=== PATIENT | female | born 1965 | race African-American/Black ===

== ENCOUNTER 2017-05-27 18:42 | Observation (INO) | payer OTHER ==
[2017-05-27 18:49] VITALS: BMI 29.2
--- NOTE | 2017-05-27 19:32 | PDOC ---
History of Present Illness - General Chief Complaint: Weakness Stated Complaint: PAIN Time Seen by Provider: 05/27/17 18:58 - History of Present Illness Initial Comments: 05/27/17 20:10 The patient is a 51 year old female with a history of DM and HTN who presents for evaluation of left shoulder and neck pain. The patient reports a several month history of left sided jaw pain that has had a negative work up done by dental and ENT. She states that over the past 1 week she has been feeling more fatigued and today began experiencing left sided achy shoulder, arm, and neck pain prompting her to present to the ED for evaluation. She endorses some subjective fevers and chills, but denies any SOB, chest pain, abdominal pain, or changes with urination or bowel movements. She states that she has seen a food and nutrition supervisor in the past, but does not follow regularly due to an abnormal EKG. She has a copy with her that demonstrates st elevations in v1-v3 with depressions in lead II. She states that she has had a negative cath in the past and a negative work up by her food and nutrition supervisor for acs. Past History - Past Medical History Allergies/Adverse Reactions: Allergies Allergy/AdvReac Type Severity Reaction Status Date / Time No Known Allergies Allergy Unverified 05/27/17 18:49 Home Medications: Ambulatory Orders Metformin HCl 500 mg PO BID #14 tablet 12/22/14 Ramipril 10 mg PO DAILY capsule 12/22/14 Sitagliptin Phosphate [Januvia] 25 mg PO DAILY 05/27/17 Diabetes: Yes HTN: Yes - Suicide/Smoking/Psychosocial Hx Smoking History: Never smoked Have you smoked in the past 12 months: No Hx Alcohol Use: No Drug/Substance Use Hx: No Substance Use Type: None Review of Systems - Review of Systems Comments:: 05/27/17 20:18 Constitutional: Fatigue, fevers, chills. No malaise HEENT: No Rhinorrhea, nasal congestion, Cardiovascular: No chest pain, syncope, palpitations, lightheadedness Respiratory: No Cough, SOB, Hemoptysis, Gastrointestinal: No Abdominal pain, Nausea, Vomiting, Constipation, Diarrhea, Melena Genitourinary: No Dysuria, Frequency, Urgency, Hesitancy, Hematuria, Flank pain Musculoskeletal: Left shoulder and neck achy pain. No Myalgia, arthralgia Skin: No rashes, bruising, pallor Neurologic: No Headache, Dizziness, Numbness, Weakness, or Tingling *Physical Exam - Vital Signs Last Vital Signs Temp Pulse Resp BP Pulse Ox 98.2 F 68 20 153/86 100 05/27/17 18:46 05/27/17 18:46 05/27/17 18:46 05/27/17 18:46 05/27/17 18:46 - Physical Exam Comments: 05/27/17 20:22 General Appearance: Nourished. No Apparent Distress HEENT: EOMI, SHILA. No Pharyngeal Erythema, Tonsillar Exudate, Tonsillar Erythema Neck: Normal range of motion. No Cervical Lymphadenopathy Respiratory/Chest: Lungs Clear, Normal Breath Sounds. No Crackles, Rales, Rhonchi, Wheezing Cardiovascular: Regular Rhythm, Regular Rate. No Murmur, Gallops, Rubs Gastrointestinal/Abdominal: Normal Bowel Sounds, Soft. No Guarding, Rebound, Tenderness Musculoskeletal: No CVA Tenderness Extremity: Normal Capillary Refill Integumentary: Normal Color, Dry, Warm Neurologic: Fully Oriented, Alert, Normal Mood/Affect, Normal Response, Heart Score/ECG Review #1 ECG reviewed & interpreted by me at: 20:41 (Known old st elevations in leads v1- v3) General ECG Interpretation: Sinus Rhythm, Normal Rate, Normal Intervals, No acute ischemic changes Compared to previous ECG there are: No significant change (01/12/17) ED Treatment Course - LABORATORY CBC & Chemistry Diagram: 05/27/17 20:00 05/27/17 20:00 Medical Decision Making - Medical Decision Making 05/27/17 20:24 The patient is a 51 year old female with a history of DM and HTN who presents for evaluation of left shoulder and neck pain. Differential includes but is not limited to: Musculoskeletal, ACS, Pneumonia, metabolic derangement. Given the patient's symptoms of achy left shoulder pain with a normal physical exam, it is likely her symptoms are due to musculoskeletal spasm or strain. However, given her significant comorbidities of DM and HTN we will obtain a cbc, cmp, troponin and EKG to evaluate for ACS. The patient has known st elevations on a prior EKG she brought with her that have had a negative work up in the past. We will compare our EKG with the one she has provided. We will also obtain a chest plain film to evaluate for pneumonia, although we have a low suspicion due to her normal physical exam. We will continue to monitor and reassess. 05/27/17 21:51 cbc, cmp and initial troponin are negative. EKG is unchanged from previous. We will observe the patient and obtain a second troponin. 05/28/17 02:52 Second troponin is positive at 0.07. We believe that the patient requires admission for further management of her symptoms. 05/28/17 03:00 Discussed the patient with the hospitalist team who accepted the patient for tele obs admission. *DC/Admit/Observation/Transfer Diagnosis at time of Disposition: Elevated troponin level - Discharge Dispostion Condition at time of disposition: Stable Admit: Yes
[2017-05-27 20:12] LABS: BASOPHIL 0.4 % (0-2.0); EOSINOPHIL 1.1 % (0-4.5); MCH 31.1 pg (25.7-33.7); MCHC 33.8 g/dl (32.0-36.0); MEAN CELL VOLUME 91.9 fl (80-96); MEAN PLT VOLUME 8.2 fl (7.5-11.1); PLATELET COUNT 189 K/MM3 (134-434); RDW 13.6 % (11.6-15.6)
[2017-05-27 20:37] LABS: ALBUMIN 3.3 g/dl (3.4-5.0); ANION GAP 5 (8-16); BILIRUBIN,TOTAL 0.4 mg/dL (0.2-1.0); CALCIUM 8.1 mg/dL (8.5-10.1); CO2 28 mmol/L (21-32); CREATININE 0.5 mg/dL (0.55-1.02); GLUCOSE,RANDOM 137 mg/dL (74-106); TOT PROT 6.5 g/dl (6.4-8.2)
[2017-05-27 20:43] LABS: ALK PHOS 55 U/L (45-117); CPK 158 IU/L (26-192); SGPT/ALT 25 U/L (12-78); TROPONIN I 0.05 ng/ml (0.00-0.05)
[2017-05-27 20:50] LABS: SGOT/AST 17 U/L (15-37)
[2017-05-27 20:51] LABS: URINE APPEARANCE CLEAR; URINE BILIRUBIN NEGATIVE (NEGATIVE); URINE BLOOD 2+ (NEGATIVE); URINE COLOR LTYELLOW; URINE GLUCOSE (UA) 3+ (NEGATIVE); URINE KETONE NEGATIVE (NEGATIVE); URINE NITRITE NEGATIVE (NEGATIVE); URINE PROTEIN NEGATIVE (NEGATIVE); URINE UROBILINOGEN NEGATIVE mg/dL (0.2-1.0)
[2017-05-27 20:58] LABS: URINE MUCUS RARE; URINE RBC 30 /hpf (0-3); URINE WBC 1 /hpf (3-5)
[2017-05-27] MEDS ORDERED: KETOROLAC TROMETHAMINE 30 MG/1 ML VIAL IVPUSH ONE (21:03)
[2017-05-27] MEDS ORDERED: METHOCARBAMOL 500 MG TABLET PO ONE (21:03)
[2017-05-27] MEDS ORDERED: METHOCARBAMOL 500 MG TABLET ONE (21:08)
[2017-05-27] MEDS ORDERED: KETOROLAC TROMETHAMINE 30 MG/1 ML VIAL ONE (21:09)
[2017-05-27 22:11] LABS: URINE LEUK ESTERASE Negative (NEGATIVE)
[2017-05-28 00:33] LABS: TROPONIN I 0.07 ng/ml (0.00-0.05)
[2017-05-28] MEDS ORDERED: ASPIRIN 81 MG CHEWABLE TABLETS PO ONE (01:20)
[2017-05-28] MEDS ORDERED: METOPROLOL TARTRATE 50 MG TABLET (FP) PO ONE (01:21)
[2017-05-28] MEDS ORDERED: METOPROLOL TARTRATE 50 MG TABLET (FP) ONE (01:50)
[2017-05-28] MEDS ORDERED: ASPIRIN 81 MG CHEWABLE TABLETS ONE (01:50)
[2017-05-28] MEDS ORDERED: ONDANSETRON 4 MG/2 ML VIAL IVPB PRN (02:44)
[2017-05-28] MEDS ORDERED: NITROGLYCERIN SUBLINGUAL 1/150 0.4 MG TAB SL PRN (02:44)
[2017-05-28] MEDS ORDERED: ACETAMINOPHEN 325 MG TABLET (FP) PO PRN (02:44)
[2017-05-28] MEDS ORDERED: morphine CARPU-JECT 2 MG/1 ML DISP.SYRIN IVPB PRN (02:48)
--- NOTE | 2017-05-28 03:49 | PDOC ---
Attending Attestation - Resident Resident Name: Manoj Aguilera - HPI HPI: 05/28/17 04:43 Pt comes with shoulder pain on the left associated with left jaw pain. Shoulder and arm pain began today. - Physicial Exam PE: 05/28/17 04:44 Exam is normal. Agree with resident exam - Medical Decision Making 05/28/17 04:44 Pt has a positive 2nd troponin and she will be admitted to telemetry. Asa and metoprolol given. CPK is only 138; cardiology consult needed and serial cardiac enzymes.
--- NOTE | 2017-05-28 03:54 | HP ---
Admitting History and Physical - Admission Chief Complaint: jaw pain History of Present Illness: 51 yo f w hx of htn, dm who presents to the er for evaluation of left arm pain radiating into neck and jaw. pt reports she has had discomfort to her neck and jaw in the past and was seen by dentist and ent who did not find anything wrong. she reports the pain yest felt different. she states the pain was in her left arm and radiated into her neck/jaw and side of head. it was 6-7/10 sharp. no aggravating or alleviating factors. she felt associated weakness. she denies associated nausae/vomiting, diaphoresis, heart palps, syncope(true or near), sob. She reportedly had an echo 2mon ago which was normal, also had cath done 2 years ago which was neg. she reports constipation. She denies dysuria, fevers, cough, chills. She reports hot flashes. She denies any recent travel, leg swelling or calf pain. pmh/psh- htn, dm, uterine polyp removal social- works as line construction supervisor. denies alcohol tobacco rec drugs famhx- dad- ppm pcp- [facility]- [facility] rest of ros neg except for hpi pex gen- in nad, alert hent- at/nc, [place], neck supple, trachea midline, no lymphadneopathy, no pharyngeal erythema resp- no cough, lungs ctab, no ronchi, no rales cards- no jvd, no leg edema, rrr, s1s2 heard, no rubs musk- normal arom bue,no ttp over shoulder or neck gi- soft non-tender, nt/ng, no pulsatile mass, bs+ psych- cooperative, no agitation neuro- cn2-12 grossly intact, speech clear, no facial droop prob list neck/jaw and left arm pain positive troponin weakness ?stemi htn dm imaging reviewed cxr ekg a/p- 51 yo f w hx of htn, dm who presents to the er for evaluation of left arm pain radiating into neck and jaw and found to have positive troponin 1. neck/jaw and left arm pain with positive troponin; ?stemi ekg shows st elevation in v1,v2 but no significant difference as compared to ekg 01/12/2017 which also showed elevation in v1 &v2 pt reports pain has resolved trend troponins echo cards consult cardiac tele prn david cont acei, add bb lovenox 80mg sq bid serial ekg 2. htn cont acei, add bb 3. dm ssi f/s dispo- requires > 2mn stay for +troponin w/u History Source: Patient Limitations to Obtaining History: No Limitations - Smoking History Smoking history: Never smoked Have you smoked in the past 12 months: No - Alcohol/Substance Use Hx Alcohol Use: No Home Medications - Allergies Allergies/Adverse Reactions: Allergies Allergy/AdvReac Type Severity Reaction Status Date / Time No Known Allergies Allergy Unverified 05/27/17 18:49 - Home Medications Home Medications: Ambulatory Orders Metformin HCl 500 mg PO BID #14 tablet 12/22/14 Ramipril 10 mg PO DAILY capsule 12/22/14 Sitagliptin Phosphate [Januvia] 25 mg PO DAILY 05/27/17 Physical Examination Vital Signs: Vital Signs Temperature 98.2 F 05/27/17 18:46 Pulse Rate 57 L 05/28/17 03:37 Respiratory Rate 14 05/28/17 03:37 Blood Pressure 128/76 05/28/17 03:37 O2 Sat by Pulse Oximetry (%) 100 05/27/17 18:46 Labs: CBC, BMP 05/27/17 20:00 05/27/17 20:00
[2017-05-28 06:53] LABS: BASOPHIL 0.6 % (0-2.0); EOSINOPHIL 1.3 % (0-4.5); MCH 30.6 pg (25.7-33.7); MCHC 33.4 g/dl (32.0-36.0); MEAN CELL VOLUME 91.6 fl (80-96); MEAN PLT VOLUME 8.6 fl (7.5-11.1); NEUTROPHILS 46.7 % (42.8-82.8); PLATELET COUNT 169 K/MM3 (134-434); RDW 13.4 % (11.6-15.6); WHITE BLOOD COUNT 3.5 K/mm3 (4.0-10.0)
[2017-05-28] MEDS: INSULIN SLIDING SCALE (NOVOLOG) 1 VIAL SQ SCH ×3 (07:06→17:41)
[2017-05-28 08:41] LABS: ANION GAP 7 (8-16); CO2 26 mmol/L (21-32); CREATININE 0.5 mg/dL (0.55-1.02); GLUCOSE,RANDOM 91 mg/dL (74-106); MAGNESIUM 2.1 mg/dL (1.8-2.4); TROPONIN I 0.07 ng/ml (0.00-0.05)
[2017-05-28] MEDS ORDERED: ENOXAPARIN NA (PORCINE) 40 MG/0.4 ML DISP.SYRIN SQ SCH (10:00)
--- NOTE | 2017-05-28 10:54 | EKG ---
Test Reason : Blood Pressure : / mmHG Vent. Rate : 068 BPM Atrial Rate : 068 BPM P-R Int : 148 ms QRS Dur : 096 ms QT Int : 426 ms P-R-T Axes : 065 026 137 degrees QTc Int : 452 ms NORMAL SINUS RHYTHM LEFT VENTRICULAR HYPERTROPHY WITH REPOLARIZATION ABNORMALITY ST ELEVATION, CONSIDER EARLY REPOLARIZATION ABNORMAL ECG WHEN COMPARED WITH ECG OF 29-APR-2009 06:42, QRS DURATION HAS INCREASED ST NOW DEPRESSED IN LATERAL LEADS T WAVE INVERSION NO LONGER EVIDENT IN INFERIOR LEADS CLINICAL CORRELATION IS RECOMMENDED Confirmed by VICKI HWANG, DIANE ([id number]) on 05/28/2017 10:53:45 AM Referred By: Confirmed By:DIANE COHEN MD
[2017-05-28] MEDS: RAMIPRIL 5 MG CAPSULE (FP) PO SCH (11:22)
[2017-05-28] MEDS: ENOXAPARIN NA (PORCINE) 80 MG/0.8 ML DISP.SYRIN SQ SCH ×2 (11:23→22:03)
[2017-05-28] MEDS: METOPROLOL TARTRATE 50 MG TABLET (FP) PO SCH ×2 (11:23→22:03)
[2017-05-28] MEDS: ASPIRIN 81 MG CHEWABLE TABLETS PO SCH (11:23)
--- NOTE | 2017-05-28 12:30 | CON.CARD ---
Consult Consult Specialty:: cardeiology Reason for Consultation:: left shoulder and neck pains; jaw pains; multiple CAD risks - History of Present Illness History of Present Illness: The patient is a 51 year old black female (brooklynJayne Pedro Luis) with a history of DM and HTN who presents for evaluation of left shoulder and neck pain. The patient reports a several month history of left sided jaw pain that has had a negative work up done by dental and ENT. She states that over the past 1 week she has been feeling more fatigued and today began experiencing left sided achy shoulder , arm, and neck pain prompting her to present to the ED for evaluation. She endorses some subjective fevers and chills, but denies any SOB, chest pain, abdominal pain, or changes with urination or bowel movements. She states that she has seen a hop sorter in the past for an abnormal EKG, but does not follow regularly. She has a copy with her that demonstrates st elevations in v1 -v3 with depressions in lead II. She states that she has had a negative cath in the past ([facility], ?2014, for abnormal EKG) and a negative work up by her hop sorter (Dr. Hanna) for ACS. She denies chest pain or dyspnea. - History Source History Provided By: Patient, Medical Record Limitations to Obtaining History: No Limitations - Past Medical History Cardio/Vascular: Yes: HTN, Other (DM) Reproductive: Yes: Postmenopausal - Alcohol/Substance Use Hx Alcohol Use: No - Smoking History Smoking history: Never smoked Have you smoked in the past 12 months: No - Social History Place of : [facility] ([facility]) Home Medications - Allergies Allergies/Adverse Reactions: Allergies Allergy/AdvReac Type Severity Reaction Status Date / Time No Known Allergies Allergy Unverified 05/27/17 18:49 - Home Medications Home Medications: Ambulatory Orders Metformin HCl 500 mg PO BID #14 tablet 12/22/14 Ramipril 10 mg PO DAILY capsule 12/22/14 Sitagliptin Phosphate [Januvia] 25 mg PO DAILY 05/27/17 Family Disease History - Family Disease History Family History: Denies Review of Systems - Review of Systems Constitutional: reports: No Symptoms Eyes: reports: No Symptoms HENT: reports: No Symptoms Neck: reports: Pain on Movement, Stiffness Cardiovascular: reports: No Symptoms Respiratory: reports: No Symptoms Gastrointestinal: reports: No Symptoms Genitourinary: reports: No Symptoms Breasts: reports: No Symptoms Reported Musculoskeletal: reports: Muscle Pain Integumentary: reports: No Symptoms Neurological: reports: Weakness (left shoulder and left side of neck) Endocrine: reports: No Symptoms Hematology/Lymphatic: reports: No Symptoms Psychiatric: reports: Anxiety - Risk Factors Known Risk Factors: Yes: Age, Diabetes Mellitus, Hypertension, Race, Other ( postmenopausal) Vital Signs: Vital Signs Temperature 98.1 F 05/28/17 09:00 Pulse Rate 70 05/28/17 09:00 Respiratory Rate 20 05/28/17 09:00 Blood Pressure 140/87 05/28/17 09:00 O2 Sat by Pulse Oximetry (%) 100 05/28/17 09:00 Constitutional: Yes: Calm Eyes: Yes: WNL HENT: Yes: WNL Neck: Yes: Decreased ROM Respiratory: Yes: WNL Gastrointestinal: Yes: WNL Renal/: No: Anuria Cardiovascular: Yes: WNL JVD: No Carotid Bruit: No PMI: Non-Displaced Heart Sounds: Yes: S1, S2, S4 Musculoskeletal: Yes: Muscle Pain Extremities: Yes: WNL Edema: No Peripheral Pulses WNL: Yes Integumentary: Yes: WNL Neurological: Yes: Alert, Oriented, Weakness Psychiatric: Yes: Other (anxiety) - Other Data Labs, Other Data: CBC, BMP 05/28/17 05:35 05/28/17 05:35 Troponin, BNP 05/28/17 05:35 Troponin I 0.07 H Troponin, BNP 05/28/17 05:35 Troponin I 0.07 H Abnormal Lab Results 05/28/17 05/28/17 05:35 05:35 Chloride 109 H Anion Gap 7 L BUN 20 H Creatinine 0.5 L Calcium 8.0 L Troponin I 0.07 H Total LDL Cholesterol 107 H Imaging - Results EKG: Image Reviewed Problem List - Problems (1) Elevated troponin Assessment/Plan: 0.05-->0.07; CK WNL. Chronic muscle aches of left shoulder, neck. EKG sinus bradycardia; LVH with repolarization changes; T wave inversions I, V2- V6; mild (<1mv)ST elevation V1 and V2 (compared to 01/2017, ST elevation in leads V1-V2, and ST depression in V3 are now less evident). F/u TNI serially. ECHO for LVEF, wall motion, valve status. Old records for prior coronary artery evaluation (including angiogram done ? 2014 for EKG abnormalities). Code(s): R74.8 - ABNORMAL LEVELS OF OTHER SERUM ENZYMES (2) Diabetes Assessment/Plan: on Novolog. On ARB. Code(s): E11.9 - TYPE 2 DIABETES MELLITUS WITHOUT COMPLICATIONS (3) HTN (hypertension) Assessment/Plan: on Altace and metoprolol. Code(s): I10 - ESSENTIAL (PRIMARY) HYPERTENSION (4) Hyperlipidemia Assessment/Plan: consider statin (DM; LDL cholesterol 107 mg/dL) Code(s): E78.5 - HYPERLIPIDEMIA, UNSPECIFIED (5) Anxiety Code(s): F41.9 - ANXIETY DISORDER, UNSPECIFIED
[2017-05-28 12:52] LABS: CHOLESTEROL 163 mg/dL (50-200)
[2017-05-29] MEDS: INSULIN SLIDING SCALE (NOVOLOG) 1 VIAL SQ SCH ×3 (06:00→17:01)
[2017-05-29] MEDS: METOPROLOL TARTRATE 50 MG TABLET (FP) PO SCH (09:26)
[2017-05-29] MEDS: RAMIPRIL 5 MG CAPSULE (FP) PO SCH (09:27)
[2017-05-29] MEDS: ASPIRIN 81 MG CHEWABLE TABLETS PO SCH (09:27)
[2017-05-29] MEDS: ENOXAPARIN NA (PORCINE) 80 MG/0.8 ML DISP.SYRIN SQ SCH (09:31)
--- NOTE | 2017-05-29 10:09 | EKG ---
Test Reason : Blood Pressure : / mmHG Vent. Rate : 051 BPM Atrial Rate : 051 BPM P-R Int : 160 ms QRS Dur : 090 ms QT Int : 484 ms P-R-T Axes : 044 021 166 degrees QTc Int : 446 ms SINUS BRADYCARDIA LEFT VENTRICULAR HYPERTROPHY WITH REPOLARIZATION ABNORMALITY MARKED T WAVE ABNORMALITY, CONSIDER ANTERIOR ISCHEMIA VS. POST INJURY ABNORMAL ECG WHEN COMPARED WITH ECG OF 28-MAY-2017 09:43, T WAVE VARIATION Confirmed by MALENA HWANG, BRINDA ([id number]) on 05/29/2017 10:08:58 AM Referred By: LEONCIO Confirmed By:BRINDA GUY MD
--- NOTE | 2017-05-29 10:17 | EKG ---
Test Reason : Blood Pressure : / mmHG Vent. Rate : 056 BPM Atrial Rate : 056 BPM P-R Int : 152 ms QRS Dur : 104 ms QT Int : 470 ms P-R-T Axes : 033 016 151 degrees QTc Int : 453 ms SINUS BRADYCARDIA LEFT VENTRICULAR HYPERTROPHY WITH REPOLARIZATION ABNORMALITY ST ABNORMALITY, CONSIDER MYOCARDIAL INJURY IN ANTERIOR AND LATERAL LEADS ABNORMAL ECG WHEN COMPARED WITH ECG OF 27-MAY-2017 20:24, CONSIDER EVOLVING MYOCARDIAL DAMAGE Confirmed by MALENA HWANG, BRINDA ([id number]) on 05/29/2017 10:16:50 AM Referred By: Dante MARSHALL Confirmed By:BRINDA GUY MD
--- NOTE | 2017-05-29 13:13 | PN ---
Progress Note, Physician History of Present Illness: The patient is a 51 year old black female (carmela Cloud) with a history of DM and HTN who presents for evaluation of left shoulder and neck pain. The patient reports a several month history of left sided jaw pain that has had a negative work up done by dental and ENT. She states that over the past 1 week she has been feeling more fatigued and today began experiencing left sided achy shoulder , arm, and neck pain prompting her to present to the ED for evaluation. She endorses some subjective fevers and chills, but denies any SOB, chest pain, abdominal pain, or changes with urination or bowel movements. She states that she has seen a programmable logic controller assembler in the past for an abnormal EKG, but does not follow regularly. She has a copy with her that demonstrates st elevations in v1 -v3 with depressions in lead II. She states that she has had a negative cath in the past ([facility], ?2014, for abnormal EKG) and a negative work up by her programmable logic controller assembler (Dr. Hanna) for ACS. She denies chest pain or dyspnea. - Current Medication List Current Medications: Active Medications Acetaminophen (Tylenol -) 650 mg PO Q4H PRN PRN Reason: FEVER OR PAIN Aspirin (Asa -) 81 mg PO DAILY [facility] Last Admin: 05/29/17 09:27 Dose: 81 mg Enoxaparin Sodium (Lovenox -) 80 mg SQ BID [facility] Last Admin: 05/29/17 09:31 Dose: Not Given Insulin Aspart (Novolog Vial Sliding Scale -) 1 vial SQ TIDAC [facility] PRN Reason: Protocol Last Admin: 05/29/17 11:02 Dose: Not Given Metoprolol Tartrate (Lopressor -) 50 mg PO BID [facility] Last Admin: 05/29/17 09:26 Dose: 50 mg Morphine Sulfate (Morphine Injection -) 2 mg IVPB Q4H PRN PRN Reason: PAIN Nitroglycerin (Nitrostat -) 0.4 mg SL Q5M PRN PRN Reason: FOR CHEST PAIN Ondansetron HCl (Zofran Injection) 8 mg IVPB Q6H PRN PRN Reason: NAUSEA Ramipril (Altace -) 10 mg PO DAILY [facility] Last Admin: 05/29/17 09:27 Dose: 10 mg - Objective Vital Signs: Vital Signs Temperature 97.7 F 05/29/17 10:00 Pulse Rate 52 L 05/29/17 10:00 Respiratory Rate 18 05/29/17 10:00 Blood Pressure 134/72 05/29/17 10:00 O2 Sat by Pulse Oximetry (%) 99 05/29/17 09:00 Eyes: Yes: WNL, Conjunctiva Clear, EOM Intact HENT: Yes: WNL, Atraumatic, Normocephalic Neck: Yes: WNL, Supple, Trachea Midline Cardiovascular: Yes: WNL, Regular Rate and Rhythm Respiratory: Yes: WNL, Regular, CTA Bilaterally Gastrointestinal: Yes: WNL, Normal Bowel Sounds Genitourinary: Yes: WNL Musculoskeletal: Yes: WNL Extremities: Yes: WNL Edema: No Integumentary: Yes: WNL Neurological: Yes: WNL, Alert, Oriented ...Motor Strength: WNL Psychiatric: Yes: WNL Labs: CBC, BMP 05/28/17 05:35 05/28/17 05:35
--- NOTE | 2017-05-29 13:16 | PN ---
Progress Note, Physician History of Present Illness: The patient is a 51 year old black female (carmela Cloud) with a history of DM and HTN who presents for evaluation of left shoulder and neck pain. The patient reports a several month history of left sided jaw pain that has had a negative work up done by dental and ENT. She states that over the past 1 week she has been feeling more fatigued and today began experiencing left sided achy shoulder , arm, and neck pain prompting her to present to the ED for evaluation. She endorses some subjective fevers and chills, but denies any SOB, chest pain, abdominal pain, or changes with urination or bowel movements. She states that she has seen a malt house kiln operator in the past for an abnormal EKG, but does not follow regularly. She has a copy with her that demonstrates st elevations in v1 -v3 with depressions in lead II. She states that she has had a negative cath in the past ([facility], ?2014, for abnormal EKG) and a negative work up by her malt house kiln operator (Dr. Hanna) for ACS. She denies chest pain or dyspnea. - Current Medication List Current Medications: Active Medications Acetaminophen (Tylenol -) 650 mg PO Q4H PRN PRN Reason: FEVER OR PAIN Aspirin (Asa -) 81 mg PO DAILY [facility] Last Admin: 05/29/17 09:27 Dose: 81 mg Enoxaparin Sodium (Lovenox -) 80 mg SQ BID [facility] Last Admin: 05/29/17 09:31 Dose: Not Given Insulin Aspart (Novolog Vial Sliding Scale -) 1 vial SQ TIDAC [facility] PRN Reason: Protocol Last Admin: 05/29/17 11:02 Dose: Not Given Metoprolol Tartrate (Lopressor -) 50 mg PO BID [facility] Last Admin: 05/29/17 09:26 Dose: 50 mg Morphine Sulfate (Morphine Injection -) 2 mg IVPB Q4H PRN PRN Reason: PAIN Nitroglycerin (Nitrostat -) 0.4 mg SL Q5M PRN PRN Reason: FOR CHEST PAIN Ondansetron HCl (Zofran Injection) 8 mg IVPB Q6H PRN PRN Reason: NAUSEA Ramipril (Altace -) 10 mg PO DAILY [facility] Last Admin: 05/29/17 09:27 Dose: 10 mg - Objective Vital Signs: Vital Signs Temperature 97.7 F 05/29/17 10:00 Pulse Rate 52 L 05/29/17 10:00 Respiratory Rate 18 05/29/17 10:00 Blood Pressure 134/72 05/29/17 10:00 O2 Sat by Pulse Oximetry (%) 99 05/29/17 09:00 Eyes: Yes: WNL, Conjunctiva Clear, EOM Intact HENT: Yes: WNL, Atraumatic, Normocephalic Neck: Yes: WNL, Supple, Trachea Midline Cardiovascular: Yes: WNL, Regular Rate and Rhythm Respiratory: Yes: WNL, Regular, CTA Bilaterally Gastrointestinal: Yes: WNL, Normal Bowel Sounds Genitourinary: Yes: WNL Musculoskeletal: Yes: WNL Extremities: Yes: WNL Edema: No Integumentary: Yes: WNL Neurological: Yes: WNL, Alert, Oriented ...Motor Strength: WNL Psychiatric: Yes: WNL Labs: CBC, BMP 05/28/17 05:35 05/28/17 05:35 Assessment/Plan - Problems (1) Elevated troponin Assessment/Plan: 0.05-->0.07; CK WNL. Chronic muscle aches of left shoulder, neck. EKG sinus bradycardia; LVH with repolarization changes; T wave inversions I, V2- V6; mild (<1mv)ST elevation V1 and V2 (compared to 01/2017, ST elevation in leads V1-V2, and ST depression in V3 are now less evident). F/u TNI serially. ECHO nl ef severe LVH Old records for prior coronary artery evaluation (including angiogram done ? 2014 for EKG abnormalities). echo st for risk stratification. Code(s): R74.8 - ABNORMAL LEVELS OF OTHER SERUM ENZYMES (2) Diabetes Assessment/Plan: on Novolog. On ARB. Code(s): E11.9 - TYPE 2 DIABETES MELLITUS WITHOUT COMPLICATIONS (3) HTN (hypertension) Assessment/Plan: on Altace and metoprolol. Code(s): I10 - ESSENTIAL (PRIMARY) HYPERTENSION (4) Hyperlipidemia Assessment/Plan: consider statin (DM; LDL cholesterol 107 mg/dL) Code(s): E78.5 - HYPERLIPIDEMIA, UNSPECIFIED (5) Anxiety Code(s): F41.9 - ANXIETY DISORDER, UNSPECIFIED
[2017-05-29 15:19] VITALS: BP 122/93; PULSE 80; TEMP 98.1
--- NOTE | 2017-05-29 17:20 | DS ---
Physical Exam: SUBJECTIVE: Patient seen and examined oob to chair. Feels well. Shoulder pain has resolved. OBJECTIVE: Vital Signs Period Temp Pulse Resp BP Sys/Arcos Pulse Ox Last 24 Hr 97.7 F-98.4 F 52-80 18-20 122-137/72-93 99-99 PHYSICAL EXAM GENERAL: The patient is awake, alert, and fully oriented, in no acute distress. HEAD: Normal with no signs of trauma. LUNGS: Breath sounds equal, clear to auscultation bilaterally, no wheezes, no crackles, no accessory muscle use. HEART: Regular rate and rhythm, S1, S2 without murmur, rub or gallop. ABDOMEN: Soft, nontender, nondistended, normoactive bowel sounds, no guarding, no rebound, no hepatosplenomegaly, no masses. EXTREMITIES: 2+ pulses, warm, well-perfused, no edema. NEUROLOGICAL: Cranial nerves II through XII grossly intact. Normal speech, gait not observed. PSYCH: Normal mood, normal affect. SKIN: Warm, dry, normal turgor, no rashes or lesions noted. LABS CBCD WBC 3.5 K/mm3 (4.0-10.0) L 05/28/17 05:35 RBC 4.13 M/mm3 (3.60-5.2) 05/28/17 05:35 Hgb 12.6 GM/dL (10.7-15.3) 05/28/17 05:35 Hct 37.8 % (32.4-45.2) 05/28/17 05:35 MCV 91.6 fl (80-96) 05/28/17 05:35 MCHC 33.4 g/dl (32.0-36.0) 05/28/17 05:35 RDW 13.4 % (11.6-15.6) 05/28/17 05:35 Plt Count 169 K/MM3 (134-434) 05/28/17 05:35 MPV 8.6 fl (7.5-11.1) 05/28/17 05:35 CMP Sodium 142 mmol/L (136-145) 05/28/17 05:35 Potassium 4.1 mmol/L (3.5-5.1) 05/28/17 05:35 Chloride 109 mmol/L (98-107) H 05/28/17 05:35 Carbon Dioxide 26 mmol/L (21-32) 05/28/17 05:35 Anion Gap 7 (8-16) L 05/28/17 05:35 BUN 20 mg/dL (7-18) H 05/28/17 05:35 Creatinine 0.5 mg/dL (0.55-1.02) L 05/28/17 05:35 Creat Clearance w eGFR > 60 (>60) 05/27/17 20:00 Calcium 8.0 mg/dL (8.5-10.1) L 05/28/17 05:35 Total Bilirubin 0.4 mg/dL (0.2-1.0) D 05/27/17 20:00 AST 17 U/L (15-37) D 05/27/17 20:00 ALT 25 U/L (12-78) 05/27/17 20:00 Alkaline Phosphatase 55 U/L (45-117) D 05/27/17 20:00 Total Protein 6.5 g/dl (6.4-8.2) 05/27/17 20:00 Albumin 3.3 g/dl (3.4-5.0) L 05/27/17 20:00 Laboratory Tests 05/27/17 05/27/17 05/28/17 20:00 23:51 05:35 Troponin I 0.05 0.07 H 0.07 H 05/28/17 05/28/17 12:23 18:00 Troponin I 0.04 0.05 HOSPITAL COURSE: Date of Admission:05/28/17 Date of Discharge: 05/29/17 Pre hospital course 51 year-old woman with a PMH significant for hypertension, NIDDM, and chronic left shoulder, left neck, and left ear pain. Patient presented to the ED for an exacerbation of her left shoulder, neck and jaw pain. She reported the pain was sharp, 6/10, with no aggravating or alleviating factors. She felt associated weakness. She denied chest pain, palpitations, SOB, GARCIA, and lower extremity edema. Patient reported having a normal echo two months ago and a normal cardiac catheterization two years ago. ED course (1) ECG showed significant LVH (2) Initial troponins 0.05--0.05--0.07 (3) CXR unremarkable Subsequent hospital course Serial troponins were flat-trending. Serial ECGs showed significant LVH. Echo on 05/29 showed severe concentric left ventricular hypertrophy, LV systolic function normal, no RWMA, RV normal, LAE, mild MR, mild to moderate TR, and mild PI. Stress echo on 05/29 was negative for evidence of ischemia, LV normal in size, EF grossly normal, and severe concentric LVH. Patient was started on metoprolol 50mg BID but HR dipped to 50's. On discharge, metoprolol lowered to 25mg BID. Lisinopril increased to 20mg daily. Close followup with Dr. Schilling discussed with patient. Minutes to complete discharge: 35 Discharge Summary Reason For Visit: ELEVATED TROPONIN Current Active Problems Anxiety (Acute) Diabetes (Acute) Elevated troponin (Acute) HTN (hypertension) (Acute) Hyperlipidemia (Acute) Condition: Improved - Instructions Diet, Activity, Other Instructions: Two prescriptions have been sent to your pharmacy for your hypertension: 1. Ramipril 20mg: this is an increased dose from the 10mg you were on. Continue to take the increased dose until your primary care provider Dr. Schilling tells you otherwise; 2. Metoprolol 25mg: take this medication twice daily as directed. Continue this medication until Dr. Schilling tells you otherwise. As we discussed, you have left ventricular hypertrophy, which is a sign of changes in your heart due to hypertension. It is very important you monitor your blood pressure carefully and work with Dr. Schilling regarding diet, exercise , and medications. You need regular blood pressure checks. Return to the emergency department for any new or worsening symptoms. Referrals: Konstantin James MD [Primary Care Provider] - 05/31/17 9:00 am Disposition: HOME - Home Medications Comprehensive Discharge Medication List: Ambulatory Orders Metformin HCl 500 mg PO BID #14 tablet 12/22/14 Sitagliptin Phosphate [Januvia] 25 mg PO DAILY 05/27/17 Aspirin [ASA -] 81 mg PO DAILY #0 tab.chew 05/29/17 Metoprolol Tartrate [Lopressor -] 25 mg PO BID #60 tablet 05/29/17 Ramipril [Altace] 20 mg PO DAILY #30 mg 05/29/17 This patient is new to me today: Yes Date on this admission: 05/29/17 Emergency Visit: Yes ED Registration Date: 05/28/17 Care time: The patient presented to the Emergency Department on the above date and was hospitalized for further evaluation of their emergent condition. Critical Care patient: No - Discharge Referral Referred to [facility] No
== END 2017-05-29 18:12 | disposition home or self-care (01) ==
LOC: JER 18:42 → JERBED 05-28 03:01 → UNDOADMOB 05-28 03:11 → J4W 05-28 04:07
PROVIDERS: ADMIT Internal Medicine; ATTEND Nurse Practitioner Acute Care
PROC: 3E0333Z Introduction of Anti-inflammatory into Peripheral Vein, Percutaneous Approach (ICD-10-PCS; principal; 2017-05-28)
DX: R77.8 Other specified abnormalities of plasma proteins (principal); I10 Essential (primary) hypertension; E11.9 Type 2 diabetes mellitus without complications; E78.5 Hyperlipidemia, unspecified; F41.9 Anxiety disorder, unspecified; Z79.84 Long term (current) use of oral hypoglycemic drugs
CPT/HCPCS: 36415; 71020-TC; 80048; 80053; 80061; 81003; 81015; 82550; 82553; 83721; 83735; 84443; 84484; 84703; 85025; 87086; 93005; 93010; 93306-TC; 93351-TC; 99285-25; G0378

== ENCOUNTER 2018-08-27 12:23 | Inpatient (IN) | payer OTHER ==
[2018-08-27] MEDS ORDERED: FAMOTIDINE 20 MG/50 ML IVPB 20 MG/50 ML MG IVPB ONE ×4 (12:52→17:27)
[2018-08-27] MEDS ORDERED: ONDANSETRON 4 MG/2 ML VIAL IVPB ONE (12:52)
[2018-08-27] MEDS ORDERED: LACTATED RINGERS SOLUTION 1000 ML INFUS.BAG IV ONE ×2 (12:53→14:46)
--- NOTE | 2018-08-27 13:21 | PDOC ---
History of Present Illness - General Chief Complaint: Pain, Acute Stated Complaint: ABD PAIN/ VOMITING Time Seen by Provider: 08/27/18 12:41 History Source: Patient Exam Limitations: No Limitations - History of Present Illness Initial Comments: 08/27/18 13:16 Pt is a 53yo F with PMH of NIDDM, HTN, GERD presenting to ED with complaints of nausea and vomiting x 1 day. Pt says around 10am this morning she started vomiting. She vomited about 5 times prior to coming to ED, yellow in color. She endorses nauseas and epigastric abdominal pain. Denies having undercooked foods , sick contacts, hematemesis, diarrhea, bloody stools, recent travel, sycnope, chest pain, SOB. Has not had any abdominal surgeries. Denies alcohol use. PMD: Erika PMH: see hpi PSH: none Meds: see med rec Allergies: nkda Social: denies Past History - Past Medical History Allergies/Adverse Reactions: Allergies Allergy/AdvReac Type Severity Reaction Status Date / Time No Known Allergies Allergy Unverified 05/27/17 18:49 Home Medications: Ambulatory Orders Atorvastatin Calcium 20 mg PO HS 08/27/18 Duloxetine HCl 60 mg PO DAILY 08/27/18 Nadolol 40 mg PO DAILY 08/27/18 Omeprazole 40 mg PO DAILY 08/27/18 Ramipril 5 mg PO DAILY 08/27/18 Diabetes: Yes (nidddm) HTN: Yes - Suicide/Smoking/Psychosocial Hx Smoking History: Never smoked Have you smoked in the past 12 months: No Hx Alcohol Use: No Drug/Substance Use Hx: No Substance Use Type: None Review of Systems - Review of Systems Constitutional: No: Chills, Fever HEENTM: No: Symptoms Reported Respiratory: No: Cough, Shortness of Breath Cardiac (ROS): No: Chest Pain, Lightheadedness, Palpitations, Syncope, Chest Tightness ABD/GI: Yes: Symptoms Reported, Nausea, Vomiting, Abdominal cramping. No: Constipated, Diarrhea, Rectal Bleeding, Tarry Stools : No: Symptoms Reported Musculoskeletal: No: Symptoms Reported Integumentary: No: Symptoms Reported Neurological: No: Symptoms reported *Physical Exam - Vital Signs Last Vital Signs Temp Pulse Resp BP Pulse Ox 97.9 F 63 20 133/82 99 08/27/18 12:33 08/27/18 12:33 08/27/18 12:33 08/27/18 12:33 08/27/18 12:33 - Physical Exam General Appearance: Yes: Nourished, Appropriately Dressed, Moderate Distress HEENT: positive: EOMI, SHILA, Normal ENT Inspection, Pharynx Normal Neck: positive: Trachea midline, Supple. negative: Lymphadenopathy (R), Lymphadenopathy (L) Respiratory/Chest: positive: Lungs Clear, Normal Breath Sounds. negative: Crackles, Rales, Rhonchi, Stridor, Wheezing Cardiovascular: positive: Regular Rhythm, Regular Rate, S1, S2. negative: Edema , JVD, Murmur Vascular Pulses: Carotid (R): 2+, Carotid (L): 2+, Dorsalis-Pedis (R): 2+, Doralis-Pedis (L): 2+ Gastrointestinal/Abdominal: positive: Normal Bowel Sounds, Soft, Tenderness ( epigastric tenderness. No RUQ, RLQ, LLQ, LUQ tenderness). negative: Distended, Guarding, Rebound, Hernia, Mass Musculoskeletal: negative: CVA Tenderness Extremity: positive: Normal Capillary Refill. negative: Coldness, Pedal Edema, Swelling, Calf Tenderness Neurologic: positive: lpn rn hospice II-XII NML intact, Fully Oriented, Alert, Normal Mood/ Affect, Normal Response, Motor Strength 5/5 Moderate Sedation - Procedure Monitoring Vital Signs: Procedure Monitoring Vital Signs Temperature 97.9 F 08/27/18 12:33 Pulse Rate 63 08/27/18 12:33 Respiratory Rate 20 08/27/18 12:33 Blood Pressure 133/82 08/27/18 12:33 O2 Sat by Pulse Oximetry (%) 99 08/27/18 12:33 ED Treatment Course - LABORATORY CBC & Chemistry Diagram: 08/27/18 13:13 08/27/18 13:13 Medical Decision Making - Medical Decision Making 08/27/18 13:20 Pt is a 53yo F with PMH of NIDDM, HTN, GERD presenting to ED with complaints of nausea and vomiting x 1 day. Vitals: wnl PE: epigatric abdominal tenderness Ddx includes but not limited to pancreatitis, cholecystitis, ACS -EKG, CXR, trop, lipase, cbc, cmp ordered. -pepcid, zofran and iv fluids. POCUS performed by Dr. Wray and Dr. Dawn. Dr Wray states CBD 7.5, no stones, contracted GB. Labs significant for Lipase in the 4000s. No white count, triglycerides added: 51. Normal LFTs. Could be due to stone. Low suspicion for alcohol induced, necrotic or infectious type. 08/27/18 14:[address] Lynch. recommended formal U/S and maintenance fluids. 08/27/18 15:24 pt refused morhpine. Will give Tylenol IV Pt admitted to inpatient team for pancreatitis. *DC/Admit/Observation/Transfer Diagnosis at time of Disposition: Pancreatitis Qualifiers: Chronicity: acute Pancreatitis type: unspecified pancreatitis type Acute pancreatitis complication: unspecified Qualified Code(s): K85.90 - Acute pancreatitis without necrosis or infection, unspecified - Discharge Dispostion Condition at time of disposition: Improved Decision to Admit order: Yes - Referrals - Patient Instructions - Post Discharge Activity
[2018-08-27 13:22] LABS: BASO % 0.2 % (0-2.0); EOS % 0.2 % (0-4.5); HEMATOCRIT 38.3 % (32.4-45.2); HEMOGLOBIN 12.8 GM/dL (10.7-15.3); LYMPH % 6.9 % (8-40); MCH 32.4 pg (25.7-33.7); MCHC 33.6 g/dl (32.0-36.0); MEAN CELL VOLUME 96.6 fl (80-96); MEAN PLT VOLUME 9.4 fl (7.5-11.1); MONO % 4.6 % (3.8-10.2); NEUT % 88.1 % (42.8-82.8); PLATELET COUNT 153 K/MM3 (134-434); RBC 3.96 M/mm3 (3.60-5.2); RDW 14.2 % (11.6-15.6); WHITE BLOOD COUNT 6.9 K/mm3 (4.0-10.0)
[2018-08-27] MEDS ORDERED: ONDANSETRON 4 MG/2 ML VIAL ONE (13:30)
[2018-08-27 13:55] LABS: ALBUMIN 3.8 g/dl (3.4-5.0); ALK PHOS 58 U/L (45-117); ANION GAP 6 MMOL/L (8-16); BILIRUBIN,TOTAL 0.8 mg/dL (0.2-1); BLOOD UREA NITROGEN 18 mg/dL (7-18); CALCIUM 8.5 mg/dL (8.5-10.1); CHLORIDE 106 mmol/L (98-107); CO2 28 mmol/L (21-32); CREATININE 0.5 mg/dL (0.55-1.3); GLUCOSE,RANDOM 167 mg/dL (74-106); POTASSIUM 4.7 mmol/L (3.5-5.1); SGOT/AST 30 U/L (15-37); SGPT/ALT 44 U/L (13-61); SODIUM 140 mmol/L (136-145)
--- NOTE | 2018-08-27 13:58 | PDOC ---
Attending Attestation - Resident Resident Name: Nimisha Wallace - ED Attending Attestation I have performed the following: I have examined & evaluated the patient, The case was reviewed & discussed with the resident, I agree w/resident's findings & plan - HPI HPI: 08/27/18 13:53 53-year-old female with history of hypertension, diabetes presents with epigastric discomfort and nausea/vomiting that began at 10 AM this morning. Patient was in her usual state of good health, no recent travel or antibiotics or known sick contacts, presents with nonbloody nonbilious emesis over the last 3 hours. Had a normal bowel movement during this time, no melena or diarrhea. No fevers or chills or myalgias. Has had endoscopy in the past, diagnosed with gastritis/GERD and maintained on PPI. - Physicial Exam PE: 08/27/18 13:59 vital signs normal Well-appearing seated in stretcher No jaundice or pallor, positive dry mucosa Heart is regular, lungs are clear Abdomen soft/nondistended. Epigastric discomfort to palpation without guarding or rebound. - Medical Decision Making 08/27/18 13:59 53-year-old female with epigastric discomfort/nausea/vomiting this morning, benign abdominal exam and hemodynamically stable. Question gastritis flare, possible viral etiology. Rule out biliary versus pancreatic ideology. Labs, EKG Antacids, IV fluids, antiemetic Bedside point of care ultrasound Reassess 08/27/18 14:39 wbc normal, lipase elevated with dilated CBD on bedside sono. Discussed with Dr. Perez of GI, recommend hydration and formal u/s. will admit for possible choledocholithiasis/gallstone pancreatitis. Heart Score/ECG Review #1 ECG reviewed & interpreted by me at: 13:43 General ECG Interpretation: Sinus Rhythm, Normal Rate (57), Normal Intervals ( LVH with strain pattern, qtc 463), No acute ischemic changes Compared to previous ECG there are: No significant change (c/w 05/28/17)
[2018-08-27 14:27] LABS: TRIGLYCERIDES 51 mg/dL (0-150)
[2018-08-27] MEDS ORDERED: morphine CARPU-JECT 4 MG/1 ML DISP.SYRIN IVPUSH ONE (14:41)
[2018-08-27] MEDS ORDERED: morphine SULFATE 4 MG/ML VIAL ONE (15:09)
[2018-08-27] MEDS ORDERED: ACETAMINOPHEN 1000 MG/100 ML VIAL (NON FORMULARY) IVPB ONE ×2 (15:24→20:57)
[2018-08-27] MEDS ORDERED: ACETAMINOPHEN INJECTION 100 ML IVPB ONE (15:29)
--- NOTE | 2018-08-27 16:36 | CON.GI ---
Consult Consult Specialty:: GI Referred by:: Hospitalist Service Reason for Consultation:: Pancreatitis - History of Present Illness Chief Complaint: I had abdomen pain in my upper stomach and was vomiting History of Present Illness: 53F admitted through [facility] ER for evaluation of abdominal pain, nausea, vomiting. Ms. Gore describes the pain as being located in the mid upper abdomen, sharp and progressively more intense along with persistent nausea and vomiting. Te pain was non-radiating and she denied associated back pain. The vomiting was non bloody and clear. She denied similar episodes in the past. She denies any diarrg Pain somewhat improved now. In the ED she was noted to have a lipase on >4k. liver chemistries were normal as was triglyceride level. The ER resident explained that a bedside US performed by an US trained ER attending revealed a 7mm CBD and no gallstones. Ms. Gore follows with Dr. Grant Stevenson, reconciliation analyst at [facility]. She beleievs that her last EGD was 1 year ago and that biopsies were "OK". She has had a colonoscopy, she believes within the last 5 years. She was started on janumet 6 months after, having been taken off the regimen of Jardiance along with metformin given weight loss. She has gained weight back since that time. She was started on atorvastatin about 6 months ago and takes Omeprazole long stanging for GERD. She otherwise denies any changes to her medication regimen / OTC meds or herbal supplements. There is no family history of colorectal cancer, pancreatitis or pancreatic cancer. She is a non-smoker and denies etoh use. I evaluatedher in radiology, where she had just completed a formal abdominal US. The US revealed a 6-7mm CBD , unchanged fro measurements from a study in 2009 along with contracted gallbladder. No obvious cholelithiasis was seen. - History Source History Provided By: Patient, Family Member ( present at bedside) - Past Medical History Cardio/Vascular: Yes: HTN, Other (DM) - Alcohol/Substance Use Hx Alcohol Use: No History of Substance Use: reports: None - Smoking History Smoking history: Never smoked Have you smoked in the past 12 months: No - Social History Usual Living Arrangement: With Spouse ADL: Independent Occupation: [employer] at [employer] Place of : Other ([employer]) Came to [place]year[place] 1998 History of Recent Travel: No Home Medications - Allergies Allergies/Adverse Reactions: Allergies Allergy/AdvReac Type Severity Reaction Status Date / Time No Known Allergies Allergy Unverified 05/27/17 18:49 - Home Medications Home Medications: Ambulatory Orders Aspirin [ASA -] 81 mg PO DAILY 08/27/18 Atorvastatin Calcium 20 mg PO HS 08/27/18 Duloxetine HCl 60 mg PO DAILY 08/27/18 Nadolol 40 mg PO DAILY 08/27/18 Omeprazole 40 mg PO DAILY 08/27/18 Ramipril 5 mg PO DAILY 08/27/18 Sitagliptin Phos/Metformin HCl [Janumet 50-1,000 mg Tablet] 1 each PO BID Family Disease History - Family Disease History Family Disease History: Other: Father (Alive: 82: DM II, HTN), Mother (Alive: 75 : DM II), Brother (3, DM II), Sister (2, DM II), Son (None), Daughter (None) Other Family History: No family history of colorectal cancer, other GI malignancy or pancreatitis Review of Systems - Review of Systems Constitutional: denies: Chills, Fever, Unintentional Wgt. Loss Cardiovascular: denies: Chest Pain Respiratory: denies: Cough, SOB Gastrointestinal: reports: Abdominal Pain, Constipation (chronic), Nausea, Vomiting. denies: Diarrhea, Dysphagia, Indigestion, Melena, Vomiting Blood Physical Exam-GI Vital Signs: Vital Signs Temperature Pulse Rate 66 08/27/18 1600 Respiratory Rate Blood Pressure O2 Sat by Pulse Oximetry (%) Constitutional: Yes: Calm Eyes: No: Sclera Icterus Cardiovascular: Yes: Regular Rate and Rhythm. No: Murmur Respiratory: Yes: CTA Bilaterally Gastrointestinal Inspection: No: Distention, Scars ...Auscultate: Yes: Normoactive Bowel Sounds ...Palpate: Yes: Soft, Tenderness (Mild TTP mid abdomen / epigastrium). No: Guarding, Hepatomegaly, Splenomegaly, Tenderness, Rebound ...Percussion: No: Tympanitic Edema: No (No LE edema) Neurological: Yes: Alert Labs: CBC, BMP 08/27/18 13:13 08/27/18 13:13 Hepatic Panel Total Bilirubin 0.8 mg/dL (0.2-1) 08/27/18 13:13 AST 30 U/L (15-37) 08/27/18 13:13 ALT 44 U/L (13-61) 08/27/18 13:13 Alkaline Phosphatase 58 U/L (45-117) 08/27/18 13:13 Albumin 3.8 g/dl (3.4-5.0) 08/27/18 13:13 Laboratory Tests 08/27/18 08/27/18 13:13 13:13 Triglycerides 51 Lipase 4534 H Imaging - Results Ultrasound: Report Reviewed Problem List - Problems (1) Vomiting Assessment/Plan: With lipase >4000 along with location of pain description, the possibility of an acute pancreatitis would need to be considered. Liver chemistries do not suggest biliary etiology and there are no gross gallstones noted on the ER and formally performed abdominal US. Triglycerides wnl as well. The borderline CBD appears to be a chronic finding. Medication induced etiology needs to be considered higher in the differential in this case. Januvia and atorvastatin are the newest agents in her regimen. Consider d/cing Januvia and using alternate agent along with metformin. Omeprazole can be eliminated as well and OTC pepcid or zantac as needed and as directed can be used for GERD relief. Also : NPO for now with IV hydration (lactated ringers at 200cc/hr). If continued improvement, advance to clears to see if PO can be tolerated. MRI/MRCP of the abdomen with and without contrast to further evaluate pancreatic parenchyma (exclude mass lesion s potential precipitant) and chronicall borderline size of CBD Will follow with you Code(s): R11.10 - VOMITING, UNSPECIFIED
[2018-08-27] MEDS ORDERED: LACTATED RINGERS SOLUTION 1,000 ML/1,000 ML INFUS.BAG IV SCH ×2 (17:00→17:15)
[2018-08-27] MEDS ORDERED: PANTOPRAZOLE SODIUM 40 MG VIAL IVPUSH ONE (17:21)
--- NOTE | 2018-08-27 17:21 | HP ---
CHIEF COMPLAINT: abdominal pain PCP: Erika Cardio: Dr. Campos ([facility]) HISTORY OF PRESENT ILLNESS: Pt is a 53 y/o F with PMH HTN, NIDDM, HLD, GERD who presented to ED with 1 day of nausea and 6 episodes of nonbloody nonbilious vomiting. Denies fever, chills , diarrhea, cough, sick contacts, travel. No history gall stones. No history EtOH. ER course was notable for: (1) Lipase > 4000 (2) (3) Recent Travel: denies PAST MEDICAL HISTORY: HTN, NIDDM, HLD, GERD, abnormal EKG (LVH w/ stable ST & T changes), constipation , anxiety PAST SURGICAL HISTORY: Remote uterine polypectomy Social History: Smoking: denies Alcohol: denies Drugs: denies Family History: HTN, DM Allergies No Known Allergies Allergy (Unverified 05/27/17 18:49) HOME MEDICATIONS: Home Medications Medication Instructions Recorded Atorvastatin Calcium 20 mg PO HS 08/27/18 Duloxetine HCl 60 mg PO DAILY 08/27/18 Nadolol 40 mg PO DAILY 08/27/18 Omeprazole 40 mg PO DAILY 08/27/18 Ramipril 5 mg PO DAILY 08/27/18 REVIEW OF SYSTEMS CONSTITUTIONAL: Absent: fever, chills, diaphoresis, generalized weakness, malaise, loss of appetite, weight change HEENT: Absent: rhinorrhea, nasal congestion, throat pain, throat swelling, difficulty swallowing, mouth swelling, ear pain, eye pain, visual changes CARDIOVASCULAR: Absent: chest pain, syncope, palpitations, irregular heart rate, lightheadedness , peripheral edema RESPIRATORY: Absent: cough, shortness of breath, dyspnea with exertion, orthopnea, wheezing, stridor, hemoptysis GASTROINTESTINAL:abdominal pain, nausea, vomiting, constipation Absent: abdominal distension,, diarrhea, melena, hematochezia GENITOURINARY: Absent: dysuria, frequency, urgency, hesitancy, hematuria, flank pain, genital pain MUSCULOSKELETAL: Absent: myalgia, arthralgia, joint swelling, back pain, neck pain SKIN: Absent: rash, itching, pallor HEMATOLOGIC/IMMUNOLOGIC: Absent: easy bleeding, easy bruising, lymphadenopathy, frequent infections ENDOCRINE: Absent: unexplained weight gain, unexplained weight loss, heat intolerance, cold intolerance NEUROLOGIC: Absent: headache, focal weakness or paresthesias, dizziness, unsteady gait, seizure, mental status changes, bladder or bowel incontinence PSYCHIATRIC: Absent: anxiety, depression, suicidal or homicidal ideation, hallucinations. PHYSICAL EXAMINATION Vital Signs - 24 hr 08/27/18 12:33 Temperature 97.9 F Pulse Rate 63 Respiratory 20 Rate Blood Pressure 133/82 O2 Sat by Pulse 99 Oximetry (%) Gen: AAO x 3, NAD HEENT: PERRL, EOMI Neck: supple, no jvd Cardio: rrr, normal s1s2, no mrg Pulm: CTA b/l Abd: normal bs, nondistended, soft, epigastric tenderness to palpation, no RUQ tenderness, Castro's negative Ext: no edema Laboratory Results - last 24 hr 08/27/18 08/27/18 08/27/18 13:13 13:13 13:13 WBC 6.9 RBC 3.96 Hgb 12.8 Hct 38.3 MCV 96.6 H MCH 32.4 MCHC 33.6 RDW 14.2 Plt Count 153 MPV 9.4 Absolute Neuts (auto) 6.1 Neutrophils % 88.1 H D Lymphocytes % 6.9 L D Monocytes % 4.6 Eosinophils % 0.2 D Basophils % 0.2 Nucleated RBC % 0 Sodium 140 Potassium 4.7 Chloride 106 Carbon Dioxide 28 Anion Gap 6 L BUN 18 Creatinine 0.5 L Creat Clearance w eGFR > 60 Random Glucose 167 H Calcium 8.5 Total Bilirubin 0.8 AST 30 ALT 44 Alkaline Phosphatase 58 Troponin I 0.03 Total Protein 7.0 Albumin 3.8 Triglycerides 51 Lipase 4534 H ASSESSMENT/PLAN: Pt is a 53 y/o F with PMH sig for HLD, NIDDM, HTN who presented to ED with nausea, vomiting, and abdominal pain. She was found to have a lipase of > 4000 in ED. Pt is on Obs for pancreatitis. #Pancreatitis -repeat lipase -NPO. Montior for resolution of pain and advance to clears per GI -LR -Protonix #HLD -c/w home statin #HTN -c/w home nadolol, ramipril #GERD -on protonix #NIDDM -BGM ACHS -ISS #Anxiety -c/w home duloxetine #FEN -LR -lytes wnl -NPO #PPx -lovenox #Dispo -Obs Vadim Reyes MD PGY-2 IM Visit type - Emergency Visit Emergency Visit: Yes ED Registration Date: 08/27/18 Care time: The patient presented to the Emergency Department on the above date and was hospitalized for further evaluation of their emergent condition. - New Patient This patient is new to me today: Yes Date on this admission: 08/27/18 - Critical Care Critical Care patient: No
[2018-08-27] MEDS ORDERED: ENOXAPARIN NA (PORCINE) 40 MG/0.4 ML DISP.SYRIN SQ ONE (17:27)
[2018-08-27] MEDS: ENOXAPARIN NA (PORCINE) 40 MG/0.4 ML DISP.SYRIN SQ SCH (18:01)
[2018-08-27] MEDS: INSULIN SLIDING SCALE (NOVOLOG) 1 VIAL SQ SCH ×2 (18:26→23:19)
--- NOTE | 2018-08-27 18:35 | PN ---
Teaching Attending Note Name of Resident: Vadim Reyes ATTENDING PHYSICIAN STATEMENT I saw and evaluated the patient. I reviewed the resident's note and discussed the case with the resident. I agree with the resident's findings and plan as documented. SUBJECTIVE: Some ongoing epigastric discomfort. No further vomiting. No fever/ chills OBJECTIVE Afebrile/Hemodynamically Stable. Last Vital Signs Temp Pulse Resp BP Pulse Ox 98.3 F 79 20 145/92 100 08/27/18 18:15 08/27/18 18:15 08/27/18 18:15 08/27/18 18:15 08/27/18 18:15 HEENT - Atraumatic, Normocephalic Heart - S1, S2, RRR Lungs - clear to auscultation, no crackles/wheeze. Abdomen - epigastric tenderness. Soft, Bowel Sounds normal. Extremities - no edema. No calf swelling/tenderness Laboratory Results - last 24 hr 08/27/18 08/27/18 08/27/18 13:13 13:13 13:13 WBC 6.9 RBC 3.96 Hgb 12.8 Hct 38.3 MCV 96.6 H MCH 32.4 MCHC 33.6 RDW 14.2 Plt Count 153 MPV 9.4 Absolute Neuts (auto) 6.1 Neutrophils % 88.1 H D Lymphocytes % 6.9 L D Monocytes % 4.6 Eosinophils % 0.2 D Basophils % 0.2 Nucleated RBC % 0 Sodium 140 Potassium 4.7 Chloride 106 Carbon Dioxide 28 Anion Gap 6 L BUN 18 Creatinine 0.5 L Creat Clearance w eGFR > 60 Random Glucose 167 H Calcium 8.5 Total Bilirubin 0.8 AST 30 ALT 44 Alkaline Phosphatase 58 Troponin I 0.03 Total Protein 7.0 Albumin 3.8 Triglycerides 51 Lipase 4534 H Home Medications Medication Instructions Recorded Atorvastatin Calcium 20 mg PO HS 08/27/18 Duloxetine HCl 60 mg PO DAILY 08/27/18 Nadolol 40 mg PO DAILY 08/27/18 Omeprazole 40 mg PO DAILY 08/27/18 Ramipril 5 mg PO DAILY 08/27/18 ASSESSMENT/PLAN 53 year old female with HTN, HLD, DM 2, GERD, presents with multiple episodes of nausea and vomiting onset at 10am with associated worsening of her chronic epigastric pain. She has apparently seen a Director Of Informatics in the past for her chronic abdominal discomfort but is unclear what his impression is. She denies hematemesis/melena/hematochezia. 1. Acute Pancreatitis, possibly acute on chronic, etiology unclear Lipase 453 Januvia, PPI held as per GI NPO, IV Fluids GI consulted - recommend MRCP. LFTS normal, CBD borderline/prominent on US, awaiting MRCP. Afebrile/Hemodynamically Stable. 2. HTN - Continue Nadolol and TANISHA-I 3. HLD - continue Atorvastatin 4. DM 2 - recently started on Januvia. Will stop in the event this may be responsible for her possible pancreatitis. NPO, Novolog s/scale q6h 5. Anxiety - Continue Duloxetine DVT Px - Lovenox SQ GI Px - PPI held as per GI, will cover with H2 anyi.
[2018-08-27] MEDS ORDERED: INSULIN (NOVOLOG) ASPART 100 UNITS/ML 10ML VIAL ONE (21:22)
[2018-08-27] MEDS: FAMOTIDINE 20 MG/50 ML IVPB 20 MG/50 ML MG IVPB SCH (21:55)
[2018-08-27] MEDS: ATORVASTATIN CA 20 MG TABLET (FP) PO SCH (21:55)
[2018-08-27] MEDS ORDERED: PANTOPRAZOLE SODIUM 40 MG VIAL IVPUSH SCH (22:00)
[2018-08-28 02:23] VITALS: BMI 28.6
[2018-08-28] MEDS: INSULIN SLIDING SCALE (NOVOLOG) 1 VIAL SQ SCH ×4 (05:58→23:23)
[2018-08-28 08:17] LABS: BASO % 0.1 % (0-2.0); EOS % 0.4 % (0-4.5); HEMATOCRIT 33.8 % (32.4-45.2); HEMOGLOBIN 11.4 GM/dL (10.7-15.3); LYMPH % 15.5 % (8-40); MCH 32.4 pg (25.7-33.7); MCHC 33.8 g/dl (32.0-36.0); MEAN CELL VOLUME 95.8 fl (80-96); MEAN PLT VOLUME 9.8 fl (7.5-11.1); MONO % 7.8 % (3.8-10.2); NEUT % 76.2 % (42.8-82.8); PLATELET COUNT 121 K/MM3 (134-434); RBC 3.53 M/mm3 (3.60-5.2); RDW 14.4 % (11.6-15.6); WHITE BLOOD COUNT 3.3 K/mm3 (4.0-10.0)
[2018-08-28 08:43] LABS: ALBUMIN 2.9 g/dl (3.4-5.0); ALK PHOS 45 U/L (45-117); ANION GAP 7 MMOL/L (8-16); BILIRUBIN,TOTAL 1.2 mg/dL (0.2-1); BLOOD UREA NITROGEN 18 mg/dL (7-18); CHLORIDE 106 mmol/L (98-107); CO2 30 mmol/L (21-32); CREATININE 0.6 mg/dL (0.55-1.3); GLUCOSE,RANDOM 85 mg/dL (74-106); SGOT/AST 25 U/L (15-37); SGPT/ALT 38 U/L (13-61); SODIUM 143 mmol/L (136-145); TOT PROT 5.4 g/dl (6.4-8.2)
[2018-08-28] MEDS: LACTATED RINGERS SOLUTION 1,000 ML/1,000 ML INFUS.BAG IV SCH ×3 (08:59→23:15)
[2018-08-28] MEDS: FAMOTIDINE 20 MG/50 ML IVPB 20 MG/50 ML MG IVPB SCH ×2 (09:00→21:35)
--- NOTE | 2018-08-28 09:39 | PN ---
GI Progress Note Subjective: No acute events States feeling well No abdominal pain Complains of a "sour mouth" MRI complete - Objective Vital Signs: Vital Signs Temperature 98.8 F 08/28/18 06:01 Pulse Rate 60 08/28/18 06:01 Respiratory Rate 20 08/28/18 06:01 Blood Pressure 119/61 08/28/18 06:01 O2 Sat by Pulse Oximetry (%) 100 08/28/18 02:00 Constitutional: Calm Eyes: No: Sclera Icterus Cardiovascular: Yes: Regular Rate and Rhythm Respiratory: Yes: CTA Bilaterally Gastrointestinal Inspection: No: Distention ...Auscultate: Yes: Normoactive Bowel Sounds ...Palpate: Yes: Soft. No: Hepatomegaly, Splenomegaly, Tenderness ...Percussion: No: Tympanitic Edema: No (No LE edema) Neurological: Yes: Alert, Oriented Labs: CBC, BMP 08/28/18 06:45 08/28/18 06:45 Problem List - Problems (1) Vomiting Assessment/Plan: Clinically improved Decreased IV fluids to 150cc/hr Advance to fulls. If tolerating fulls, advance to low fat Await official MRI/MRCP report Code(s): R11.10 - VOMITING, UNSPECIFIED
[2018-08-28] MEDS: ENOXAPARIN NA (PORCINE) 40 MG/0.4 ML DISP.SYRIN SQ SCH (09:53)
[2018-08-28] MEDS ORDERED: DULoxetine HCL 60 MG CAPSULE.DR PO SCH (10:00)
--- NOTE | 2018-08-28 11:48 | PN ---
Physical Exam: SUBJECTIVE: Patient seen and examined this AM. She states that her pain is much improved and denies any nausea vomiting overnight. Says is starting to be hungry and things she could tolerate liquids. OBJECTIVE: Vital Signs Period Temp Pulse Resp BP Sys/Arcos Pulse Ox Last 24 Hr 97.9 F-98.8 F 60-79 18-20 105-145/58-92 99-100 GENERAL: A&O, no acute distress HEAD: Normocephalic, atraumatic. EYES: PERRL, no scleral icterus EARS, NOSE, THROAT: oropharynx clear without exudates. Moist mucous membranes. NECK: supple without lymphadenopathy LUNGS: CTA b/l, no crackles or wheezes HEART: Regular rate and rhythm, normal S1 and S2 without murmur ABDOMEN: Soft, minimally tender to palpation in epigastric region, normoactive bowel sounds PSYCHIATRIC: Cooperative. Good eye contact. Appropriate mood and affect. SKIN: Warm, dry, no rashes or lesions noted Laboratory Results - last 24 hr 08/27/18 08/27/18 08/27/18 13:13 13:13 13:13 WBC 6.9 RBC 3.96 Hgb 12.8 Hct 38.3 MCV 96.6 H MCH 32.4 MCHC 33.6 RDW 14.2 Plt Count 153 MPV 9.4 Absolute Neuts (auto) 6.1 Neutrophils % 88.1 H D Lymphocytes % 6.9 L D Monocytes % 4.6 Eosinophils % 0.2 D Basophils % 0.2 Nucleated RBC % 0 Sodium 140 Potassium 4.7 Chloride 106 Carbon Dioxide 28 Anion Gap 6 L BUN 18 Creatinine 0.5 L Creat Clearance w eGFR > 60 POC Glucometer Random Glucose 167 H Calcium 8.5 Total Bilirubin 0.8 AST 30 ALT 44 Alkaline Phosphatase 58 Troponin I 0.03 Total Protein 7.0 Albumin 3.8 Triglycerides 51 Lipase 4534 H 08/27/18 08/27/18 08/28/18 18:22 22:01 05:57 WBC RBC Hgb Hct MCV MCH MCHC RDW Plt Count MPV Absolute Neuts (auto) Neutrophils % Lymphocytes % Monocytes % Eosinophils % Basophils % Nucleated RBC % Sodium Potassium Chloride Carbon Dioxide Anion Gap BUN Creatinine Creat Clearance w eGFR POC Glucometer [phone] 88 93 Random Glucose Calcium Total Bilirubin AST ALT Alkaline Phosphatase Troponin I Total Protein Albumin Triglycerides Lipase 01/08/28/18 08/28/18 06:45 06:45 06:45 WBC 3.3 L RBC 3.53 L Hgb 11.4 Hct 33.8 MCV 95.8 MCH 32.4 MCHC 33.8 RDW 14.4 Plt Count 121 L D MPV 9.8 Absolute Neuts (auto) 2.5 Neutrophils % 76.2 Lymphocytes % 15.5 D Monocytes % 7.8 Eosinophils % 0.4 D Basophils % 0.1 Nucleated RBC % 0 Sodium 143 Potassium 4.0 Chloride 106 Carbon Dioxide 30 Anion Gap 7 L BUN 18 Creatinine 0.6 Creat Clearance w eGFR > 60 POC Glucometer Random Glucose 85 Calcium 8.0 L Total Bilirubin 1.2 H AST 25 ALT 38 Alkaline Phosphatase 45 Troponin I Total Protein 5.4 L Albumin 2.9 L Triglycerides Lipase 241 Active Medications Generic Name Dose Route Start Last Admin Trade Name Freq PRN Reason Stop Dose Admin Atorvastatin Calcium 20 mg 08/27/18 22:00 08/27/18 21:55 Lipitor - PO Not Given HS SILVIA Docusate Sodium 100 mg 08/28/18 10:00 Colace - PO DAILY SILVIA Duloxetine HCl 60 mg 08/28/18 10:00 Cymbalta - PO DAILY SILVIA Enoxaparin Sodium 40 mg 08/27/18 17:15 08/28/18 09:53 Lovenox - SQ 40 mg DAILY SILVIA Administration Famotidine/Sodium Chloride 20 mg in 50 mls @ 100 mls/hr 08/27/18 22:00 09:00 Pepcid 20 Mg Premixed Ivpb - IVPB 100 mls/hr BID SILVIA Administration Lactated Ringer's 1,000 ml in 1,000 mls @ 150 mls/hr 08/28/18 08:30 08/28/18 08:59 Lactated Ringers Solution IV 150 mls/hr ASDIR SILVIA Administration Insulin Aspart 1 vial 08/27/18 18:00 08/28/18 05:58 Novolog Vial Sliding Scale - SQ Not Given Q6HPO SILVIA Protocol Nadolol 40 mg 08/28/18 10:00 Corgard - PO DAILY SILVIA Ramipril 5 mg 08/28/18 10:00 Altace - PO DAILY SILVIA ASSESSMENT/PLAN: Pt is a 53 y/o F with PMH HTN, NIDDM, HLD, GERD admitted with Pancreatitis Acute Panreatitis -Lipase 4500 on admission yesterday, now 241 -Continue fluids LR @ 200 cc/hr until tolerating PO -Pt hungry, will trial full liquid and advance as tolerated -GI Consult appreciated -MRCP negative for cholelithiasis or cholecystitis, likely enteritis noted in the duodenum, 1.8 cm focal enhancement @ gastric fundus -Would consider upper endoscopy HTN -Nadolol 40 mg PO Daily -Ramipril 5 mg PO Daily NIDDM -BGMs ACHS -Insulin sliding scale for glycemic control HLD -Lipitor 20 mg PO HS GERD -Pepcid 20 mg IV BID DVT Prophylaxis -Lovenox 40 mg SQ Daily FEN -Fluids: LR @ 200 cc/hr -Electrolytes: No electrolyte abnormalities, BMP in AM -Nutrition: Full liquids Disposition Med/Surg Visit type - Emergency Visit Emergency Visit: Yes ED Registration Date: 08/27/18 Care time: The patient presented to the Emergency Department on the above date and was hospitalized for further evaluation of their emergent condition. - New Patient This patient is new to me today: Yes Date on this admission: 08/28/18 - Critical Care Critical Care patient: No
[2018-08-28] MEDS ORDERED: PT OWN MED DRAWER 7, Y5N ONE (13:10)
[2018-08-28] MEDS ORDERED: DULoxetine HCL 30 MG CAPSULE.DR (FP) PO ONE (13:10)
--- NOTE | 2018-08-28 15:46 | PN ---
Teaching Attending Note Name of Resident: Johnathon Mcelroy ATTENDING PHYSICIAN STATEMENT I saw and evaluated the patient. I reviewed the resident's note and discussed the case with the resident. I agree with the resident's findings and plan as documented. SUBJECTIVE: Patient has no complaints. She denies abdominal pain, nausea. OBJECTIVE: Vital Signs Period Temp Pulse Resp BP Sys/Arcos Pulse Ox Last 24 Hr 98.3 F-98.8 F 60-79 18-20 119-145/61-92 100-100 HEART: S1S2, RRR LUNGS: Clear ABDOMEN: Soft, non-tender, non-distended, normal BS EXTREMITIES: No edema Laboratory Results - last 24 hr 08/27/18 08/27/18 08/28/18 18:22 22:01 05:57 WBC RBC Hgb Hct MCV MCH MCHC RDW Plt Count MPV Absolute Neuts (auto) Neutrophils % Lymphocytes % Monocytes % Eosinophils % Basophils % Nucleated RBC % Sodium Potassium Chloride Carbon Dioxide Anion Gap BUN Creatinine Creat Clearance w eGFR POC Glucometer 110.21223 88 93 Random Glucose Calcium Total Bilirubin AST ALT Alkaline Phosphatase Total Protein Albumin Lipase 08/28/18 08/28/18 08/28/18 06:45 06:45 06:45 WBC 3.3 L RBC 3.53 L Hgb 11.4 Hct 33.8 MCV 95.8 MCH 32.4 MCHC 33.8 RDW 14.4 Plt Count 121 L D MPV 9.8 Absolute Neuts (auto) 2.5 Neutrophils % 76.2 Lymphocytes % 15.5 D Monocytes % 7.8 Eosinophils % 0.4 D Basophils % 0.1 Nucleated RBC % 0 Sodium 143 Potassium 4.0 Chloride 106 Carbon Dioxide 30 Anion Gap 7 L BUN 18 Creatinine 0.6 Creat Clearance w eGFR > 60 POC Glucometer Random Glucose 85 Calcium 8.0 L Total Bilirubin 1.2 H AST 25 ALT 38 Alkaline Phosphatase 45 Total Protein 5.4 L Albumin 2.9 L Lipase 241 08/28/18 11:36 WBC RBC Hgb Hct MCV MCH MCHC RDW Plt Count MPV Absolute Neuts (auto) Neutrophils % Lymphocytes % Monocytes % Eosinophils % Basophils % Nucleated RBC % Sodium Potassium Chloride Carbon Dioxide Anion Gap BUN Creatinine Creat Clearance w eGFR POC Glucometer 92 Random Glucose Calcium Total Bilirubin AST ALT Alkaline Phosphatase Total Protein Albumin Lipase Current Medications Generic Name Dose Route Start Last Admin Trade Name Freq PRN Reason Stop Dose Admin Atorvastatin Calcium 20 mg 08/27/18 22:00 08/27/18 21:55 Lipitor - PO Not Given HS SILVIA Docusate Sodium 100 mg 08/28/18 10:00 Colace - PO DAILY SILVIA Duloxetine HCl 60 mg 08/28/18 10:00 Cymbalta - PO DAILY SILVIA Enoxaparin Sodium 40 mg 08/27/18 17:15 08/28/18 09:53 Lovenox - SQ 40 mg DAILY SILVIA Administration Famotidine/Sodium Chloride 20 mg in 50 mls @ 100 mls/hr 08/27/18 22:00 09:00 Pepcid 20 Mg Premixed Ivpb - IVPB 100 mls/hr BID SILVIA Administration Lactated Ringer's 1,000 ml in 1,000 mls @ 150 mls/hr 08/28/18 08:30 08/28/18 08:59 Lactated Ringers Solution IV 150 mls/hr ASDIR SILVIA Administration Insulin Aspart 1 vial 08/27/18 18:00 08/28/18 11:37 Novolog Vial Sliding Scale - SQ Not Given Q6HPO SILVIA Protocol Nadolol 40 mg 08/28/18 10:00 Corgard - PO DAILY SILVIA Ramipril 5 mg 08/28/18 10:00 Altace - PO DAILY SILVIA ASSESSMENT AND PLAN: This is a 53 year old woman with a history of HTN, hyperlipidemia, type 2 DM, GERD who presented to the ED with epigastric pain, nausea, and vomiting. 1. Acute pancreatitis - Improved - Possibly secondary to Januvia - MRCP shows no evidence of gallstones, CBD stone, pancreatitis; mildly dilated CBD 7-8 mm with abnormality ( artifact vs sludge) in distal CBD; possible enteritis; 1.8 cm focal nodular enhancement in gastric fundus just distal to GE junction - Tolerating full liquids - Decrease IV fluid 2. HTN - Continue Corgard, Altace 3. Hyperlipidemia - Continue Lipitor 4. Type 2 DM - Januvia discontinued secondary to pancreatitis - Continue Novolog sliding scale 5. Anxiety - Continue Cymbalta
[2018-08-28] MEDS: DOCUSATE SODIUM 100 MG CAPSULE (FP) PO SCH (15:50)
[2018-08-28] MEDS: RAMIPRIL 5 MG CAPSULE (FP) PO SCH (15:50)
[2018-08-28] MEDS: NADOLOL 40 MG TABLET (FP) PO SCH (15:51)
--- NOTE | 2018-08-28 16:49 | EKG ---
Test Reason : Blood Pressure : / mmHG Vent. Rate : 057 BPM Atrial Rate : 057 BPM P-R Int : 148 ms QRS Dur : 084 ms QT Int : 476 ms P-R-T Axes : 060 022 168 degrees QTc Int : 463 ms SINUS BRADYCARDIA LEFT ATRIAL ENLARGEMENT LEFT VENTRICULAR HYPERTROPHY WITH REPOLARIZATION ABNORMALITY Old lateral infarct. PROLONGED QT ABNORMAL ECG Confirmed by MD GEOVANY, VENESSA ([id number]) on 08/28/2018 4:48:47 PM Referred By: Confirmed By:VENESSA ARMENTA MD
--- NOTE | 2018-08-28 17:06 | PN ---
Progress Note (short form) - Note Progress Note: mri report reviewed. ? gastric lesion. mildly prominent cbd with ? artifact findings at distal cbd. will need follow-up egd as outpatient (states having had egd 1 year ago). will need egd follow-up as outpatient +/- eus to assess bile duct. monitor liver chemistries. plan per today's note Problem List - Problems (1) Vomiting Code(s): R11.10 - VOMITING, UNSPECIFIED
[2018-08-28] MEDS: ATORVASTATIN CA 20 MG TABLET (FP) PO SCH (21:35)
[2018-08-29] MEDS: INSULIN SLIDING SCALE (NOVOLOG) 1 VIAL SQ SCH ×3 (05:54→17:58)
[2018-08-29] MEDS: LACTATED RINGERS SOLUTION 1,000 ML/1,000 ML INFUS.BAG IV SCH ×2 (08:00→14:59)
--- NOTE | 2018-08-29 08:09 | PN ---
GI Progress Note Subjective: No acute events States feeling well No abdominal pain - Objective Vital Signs: Vital Signs Temperature 97.7 F 08/29/18 06:00 Pulse Rate 53 L 08/29/18 06:00 Respiratory Rate 18 08/29/18 06:00 Blood Pressure 147/79 08/29/18 06:00 O2 Sat by Pulse Oximetry (%) 100 08/29/18 02:00 Constitutional: Calm Eyes: No: Sclera Icterus Cardiovascular: Yes: Regular Rate and Rhythm Respiratory: Yes: CTA Bilaterally Gastrointestinal Inspection: No: Distention ...Auscultate: Yes: Normoactive Bowel Sounds ...Palpate: No: Tenderness Edema: No (No LE edema) Neurological: Yes: Alert Labs: No AM labs as of yet - ....Imaging MRI: Report Reviewed (? Nodularity just distal to the GE Junction noted on MRI, ? enteritis, ? sludge vs. artifact in distal CBD) Problem List - Problems (1) Vomiting Assessment/Plan: Resolved. MRI findings reviewed. If LFTs remain normal, will need outpatient evaluation with EGD / EUS to assess CBD / gastric fundus findings. If bilirubin /ALP rise (bilirubin soco mildly yesterday), then will have to discuss with biliary endoscopist re: role of ERCP. Await labs prior to advancing diet. Other recommendations per initial consult Code(s): R11.10 - VOMITING, UNSPECIFIED
[2018-08-29 08:41] LABS: HEMATOCRIT 33.6 % (32.4-45.2); HEMOGLOBIN 11.2 GM/dL (10.7-15.3); MCHC 33.3 g/dl (32.0-36.0); MEAN CELL VOLUME 96.1 fl (80-96); MEAN PLT VOLUME 8.9 fl (7.5-11.1); PLATELET COUNT 130 K/MM3 (134-434); RDW 14.4 % (11.6-15.6)
[2018-08-29 09:11] LABS: ALK PHOS 44 U/L (45-117); ANION GAP 4 MMOL/L (8-16); BILIRUBIN,DIRECT 0.3 mg/dL (0.0-0.2); BLOOD UREA NITROGEN 11 mg/dL (7-18); CALCIUM 8.1 mg/dL (8.5-10.1); CHLORIDE 108 mmol/L (98-107); CO2 31 mmol/L (21-32); CREATININE 0.6 mg/dL (0.55-1.3); GLUCOSE,RANDOM 89 mg/dL (74-106); POTASSIUM 4.2 mmol/L (3.5-5.1); SGOT/AST 21 U/L (15-37); SGPT/ALT 36 U/L (13-61); SODIUM 144 mmol/L (136-145); TOT PROT 5.6 g/dl (6.4-8.2)
[2018-08-29] MEDS ORDERED: PT OWN MED DRAWER 7, Y5N ONE (09:12)
[2018-08-29] MEDS: FAMOTIDINE 20 MG/50 ML IVPB 20 MG/50 ML MG IVPB SCH (09:14)
[2018-08-29] MEDS: NADOLOL 40 MG TABLET (FP) PO SCH (09:15)
[2018-08-29] MEDS: DULoxetine HCL 30 MG CAPSULE.DR (FP) PO SCH (09:15)
[2018-08-29] MEDS: RAMIPRIL 5 MG CAPSULE (FP) PO SCH (09:15)
[2018-08-29] MEDS: ENOXAPARIN NA (PORCINE) 40 MG/0.4 ML DISP.SYRIN SQ SCH (09:15)
[2018-08-29] MEDS: DOCUSATE SODIUM 100 MG CAPSULE (FP) PO SCH (09:15)
[2018-08-29 09:44] LABS: WHITE BLOOD COUNT 1.8 K/mm3 (4.0-10.0)
[2018-08-29] MEDS ORDERED: INSULIN (NOVOLOG) ASPART 100 UNITS/ML 10ML VIAL ONE (12:27)
[2018-08-29 12:29] LABS: BASO % 0.3 % (0-2.0); EOS % 1.5 % (0-4.5); HEMATOCRIT 34.2 % (32.4-45.2); HEMOGLOBIN 11.5 GM/dL (10.7-15.3); LYMPH % 41.6 % (8-40); MCH 32.1 pg (25.7-33.7); MCHC 33.6 g/dl (32.0-36.0); MEAN CELL VOLUME 95.4 fl (80-96); MONO % 11.3 % (3.8-10.2); NEUT % 45.3 % (42.8-82.8); PLATELET COUNT 132 K/MM3 (134-434); RBC 3.59 M/mm3 (3.60-5.2); RDW 14.1 % (11.6-15.6)
[2018-08-29 12:55] LABS: WHITE BLOOD COUNT 1.7 K/mm3 (4.0-10.0)
--- NOTE | 2018-08-29 13:50 | PN ---
Teaching Attending Note Name of Resident: Johnathon Mcelroy ATTENDING PHYSICIAN STATEMENT I saw and evaluated the patient. I reviewed the resident's note and discussed the case with the resident. I agree with the resident's findings and plan as documented. SUBJECTIVE: No complaints. OBJECTIVE: Vital Signs Period Temp Pulse Resp BP Sys/Arcos Pulse Ox Last 24 Hr 97.7 F-98.5 F 53-60 18-20 130-147/74-93 100 HEART: S1S2, RRR LUNGS: Clear ABDOMEN: Soft, non-tender, non-distended, normal BS EXTREMITIES: No edema Laboratory Results - last 24 hr 08/28/18 08/28/18 08/29/18 17:07 23:08 05:53 WBC RBC Hgb Hct MCV MCH MCHC RDW Plt Count MPV Absolute Neuts (auto) Neutrophils % Lymphocytes % Monocytes % Eosinophils % Basophils % Nucleated RBC % Sodium Potassium Chloride Carbon Dioxide Anion Gap BUN Creatinine Creat Clearance w eGFR POC Glucometer 106 89 88 Random Glucose Calcium Total Bilirubin Direct Bilirubin AST ALT Alkaline Phosphatase Total Protein Albumin 08/29/18 08/29/18 08/29/18 08:25 08:25 12:00 WBC 1.8 L* 1.7 L* RBC 3.50 L 3.59 L Hgb 11.2 11.5 Hct 33.6 34.2 MCV 96.1 H 95.4 MCH 32.0 32.1 MCHC 33.3 33.6 RDW 14.4 14.1 Plt Count 130 L 132 L MPV 8.9 9.0 Absolute Neuts (auto) 0.8 L Neutrophils % 45.3 D Lymphocytes % 41.6 H D Monocytes % 11.3 H Eosinophils % 1.5 D Basophils % 0.3 Nucleated RBC % 0 Sodium 144 Potassium 4.2 Chloride 108 H Carbon Dioxide 31 Anion Gap 4 L BUN 11 Creatinine 0.6 Creat Clearance w eGFR > 60 POC Glucometer Random Glucose 89 Calcium 8.1 L Total Bilirubin 1.0 Direct Bilirubin 0.3 H AST 21 ALT 36 Alkaline Phosphatase 44 L Total Protein 5.6 L Albumin 3.0 L 08/29/18 12:38 WBC RBC Hgb Hct MCV MCH MCHC RDW Plt Count MPV Absolute Neuts (auto) Neutrophils % Lymphocytes % Monocytes % Eosinophils % Basophils % Nucleated RBC % Sodium Potassium Chloride Carbon Dioxide Anion Gap BUN Creatinine Creat Clearance w eGFR POC Glucometer 133 Random Glucose Calcium Total Bilirubin Direct Bilirubin AST ALT Alkaline Phosphatase Total Protein Albumin Current Medications Generic Name Dose Route Start Last Admin Trade Name Tyree PRN Reason Stop Dose Admin Atorvastatin Calcium 20 mg 08/27/18 22:00 08/28/18 21:35 Lipitor - PO 20 mg HS SILVIA Administration Docusate Sodium 100 mg 08/28/18 10:00 08/29/18 09:15 Colace - PO 100 mg DAILY SILVIA Administration Duloxetine HCl 60 mg 08/29/18 10:00 08/29/18 09:15 Cymbalta - PO 60 mg DAILY SILVIA Administration Enoxaparin Sodium 40 mg 08/27/18 17:15 08/29/18 09:15 Lovenox - SQ 40 mg DAILY SILVIA Administration Famotidine/Sodium Chloride 20 mg in 50 mls @ 100 mls/hr 08/27/18 22:00 09:14 Pepcid 20 Mg Premixed Ivpb - IVPB 100 mls/hr BID SILVIA Administration Lactated Ringer's 1,000 ml in 1,000 mls @ 150 mls/hr 08/28/18 08:30 08/29/18 08:00 Lactated Ringers Solution IV 150 mls/hr ASDIR SILVIA Administration Insulin Aspart 1 vial 08/27/18 18:00 08/29/18 13:09 Novolog Vial Sliding Scale - SQ Not Given Q6HPO SILVIA Protocol Nadolol 40 mg 08/28/18 10:00 08/29/18 09:15 Corgard - PO 40 mg DAILY SILVIA Administration Ramipril 5 mg 08/28/18 10:00 08/29/18 09:15 Altace - PO 5 mg DAILY SILVIA Administration ASSESSMENT AND PLAN: This is a 53 year old woman with a history of HTN, hyperlipidemia, type 2 DM, GERD who presented to the ED with epigastric pain, nausea, and vomiting. 1. Acute pancreatitis - Improved - Possibly secondary to Januvia - MRCP shows no evidence of gallstones, CBD stone, pancreatitis; mildly dilated CBD 7-8 mm with abnormality ( artifact vs sludge) in distal CBD; possible enteritis; 1.8 cm focal nodular enhancement in gastric fundus just distal to GE junction - Advance diet - Discontinue IV fluid - Outpatient EGD and EUS 2. Neutropenia and thrombocytopenia - Discontinue Pepcid - Hematology eval 3. HTN - Continue Corgard, Altace 4. Hyperlipidemia - Continue Lipitor 5. Type 2 DM - Januvia discontinued secondary to pancreatitis - Continue Novolog sliding scale 6. Anxiety - Continue Cymbalta
--- NOTE | 2018-08-29 14:48 | CONSULT ---
Consult Consult Specialty:: Hematology and Oncology Referred by:: Dr. Morocho Reason for Consultation:: Leukopenia and thrombocytopenia - History of Present Illness History of Present Illness: 53 yo F h/o HTN, NIDDM, HLD and GERD admitted to the hospital for pancreatitis now being evaluated for acute neutropenia and thrombocytopenia. On admission day 2, patient's wbc decreased from 6.9 to 3.3 and day 3 to 1.7 with ANC of 770 , along side with decreasng platelets. Denies h/o congenital bone marrow disorder, cough, fever, chills, chest pain, sob, n/v, diarrhea. - History Source History Provided By: Patient Limitations to Obtaining History: No Limitations - Past Medical History Cardio/Vascular: Yes: HTN, Other (DM) - Alcohol/Substance Use Hx Alcohol Use: No History of Substance Use: reports: None - Smoking History Smoking history: Never smoked Have you smoked in the past 12 months: No - Social History Usual Living Arrangement: With Spouse ADL: Independent Occupation: Asphalt Spreader at [employer] History of Recent Travel: No Home Medications - Allergies Allergies/Adverse Reactions: Allergies Allergy/AdvReac Type Severity Reaction Status Date / Time No Known Allergies Allergy Unverified 05/27/17 18:49 - Home Medications Home Medications: Ambulatory Orders Atorvastatin Calcium 20 mg PO HS 08/27/18 Duloxetine HCl 60 mg PO DAILY 08/27/18 Nadolol 40 mg PO DAILY 08/27/18 Omeprazole 40 mg PO DAILY 08/27/18 Ramipril 5 mg PO DAILY 08/27/18 Duloxetine HCl [Cymbalta] 60 mg PO BID 08/28/18 Hydrochlorothiazide [Hctz -] 12.5 mg PO DAILY 08/28/18 Ramipril [Altace] 5 mg PO DAILY 08/28/18 Sitagliptin Phos/Metformin HCl [Janumet 50-1,000 mg Tablet] 50 - 1,000 mg PO DAILY 08/28/18 Family Disease History - Family Disease History Family Disease History: Other: Father (Alive: 82: DM II, HTN), Mother (Alive: 75 : DM II), Brother (3, DM II), Sister (2, DM II), Son (None), Daughter (None) Other Family History: No family history of colorectal cancer, other GI malignancy or pancreatitis Review of Systems - Review of Systems Constitutional: denies: Chills, Fever Cardiovascular: denies: Chest Pain, Shortness of Breath Respiratory: denies: SOB Gastrointestinal: denies: Abdominal Pain, Diarrhea Genitourinary: denies: Burning, Discharge Breasts: reports: No Symptoms Reported Integumentary: denies: Blister, Lesions Neurological: reports: No Symptoms Hematology/Lymphatic: denies: Easily Bruised, Excessive Bleeding, Swollen Glands Physical Exam Vital Signs: Vital Signs Temperature 97.9 F 08/29/18 09:17 Pulse Rate 58 L 08/29/18 09:17 Respiratory Rate 18 08/29/18 09:17 Blood Pressure 143/93 08/29/18 09:17 O2 Sat by Pulse Oximetry (%) 100 08/29/18 02:00 Constitutional: Yes: No Distress, Calm Eyes: Yes: Conjunctiva Clear, EOM Intact HENT: Yes: Atraumatic, Normocephalic Neck: No: Lymphadenopathy Cardiovascular: Yes: Regular Rate and Rhythm, S1, S2. No: Murmur Respiratory: Yes: CTA Bilaterally Gastrointestinal: Yes: Normal Bowel Sounds, Soft. No: Distention, Tenderness Edema: No Neurological: Yes: Alert, Oriented Labs: CBC, BMP 08/29/18 12:00 08/29/18 08:25 Assessment/Plan 53 yo F admitted to the hospital for pancreatitis now being evaluated for acute neutropenia and thrombocytopenia. acute on chronic neutropenia and thrombocytopenia - suspect the patient has been chronically neutropenic and thrombocytopenic and came in with leukocytosis of 6.9. Then, possibly pepcid worsened the neutropenia. - will stop pepcid and send infection workup such as HIV, hepatitis, and parovirus igm igg - will follow up on repeat cbc tomorrow Jacek Quintana PGY3 Visit type - Emergency Visit Emergency Visit: No - New Patient This patient is new to me today: Yes Date on this admission: 08/30/18 - Critical Care Critical Care patient: No
--- NOTE | 2018-08-29 17:10 | PN ---
Teaching Attending Note Name of Resident: Jacek Quintana ATTENDING PHYSICIAN STATEMENT I saw and evaluated the patient. I reviewed the resident's note and discussed the case with the resident. I agree with the resident's findings and plan as documented. SUBJECTIVE: Patient seen and examined Discussed with Dr. Perez (GI) Presented with lipase of >4K. Work up without obvious cause of biliary etiology for pancreastitis. Extrahepatic causes such as drugs are considered. Has improved with conservative management . Last Vital Signs Temp Pulse Resp BP Pulse Ox 97.4 F L 49 L 22 H 152/90 100 08/29/18 14:30 08/29/18 14:30 08/29/18 14:30 08/29/18 14:30 08/29/18 10:00 HEENT: RUTH, EOM Intact Oropharynx: No thrush, No mucositis,dentures Neck: Supple Nodes: Without adenopathy Breasts: Without masses Cor: RSR, No murmurs, No gallops Lungs: Clear to P&A Abd: Soft, Normal bowel sounds, No organomegaly Ext:No significant edema Skin: No rashes, Integument intact CBC, BMP 08/29/18 12:00 08/29/18 08:25 Abnormal Lab Results 08/29/18 08/29/18 08/29/18 08:25 08:25 12:00 WBC 1.8 L* 1.7 L* RBC 3.50 L 3.59 L MCV 96.1 H Plt Count 130 L 132 L Absolute Neuts (auto) 0.8 L Lymphocytes % 41.6 H D Monocytes % 11.3 H Chloride 108 H Anion Gap 4 L Calcium 8.1 L Direct Bilirubin 0.3 H Alkaline Phosphatase 44 L Total Protein 5.6 L Albumin 3.0 L Current Medications Generic Name Dose Route Start Last Admin Trade Name Freq PRN Reason Stop Dose Admin Atorvastatin Calcium 20 mg 08/27/18 22:00 08/28/18 21:35 Lipitor - PO 20 mg HS SILVIA Administration Docusate Sodium 100 mg 08/28/18 10:00 08/29/18 09:15 Colace - PO 100 mg DAILY SILVIA Administration Duloxetine HCl 60 mg 08/29/18 10:00 08/29/18 09:15 Cymbalta - PO 60 mg DAILY SILVIA Administration Enoxaparin Sodium 40 mg 08/27/18 17:15 08/29/18 09:15 Lovenox - SQ 40 mg DAILY SILVIA Administration Lactated Ringer's 1,000 ml in 1,000 mls @ 150 mls/hr 08/28/18 08:30 08/29/18 14:59 Lactated Ringers Solution IV 150 mls/hr ASDIR SILVIA Administration Insulin Aspart 1 vial 08/27/18 18:00 08/29/18 13:09 Novolog Vial Sliding Scale - SQ Not Given Q6HPO SILVIA Protocol Nadolol 40 mg 08/28/18 10:00 08/29/18 09:15 Corgard - PO 40 mg DAILY SILVIA Administration Ramipril 5 mg 08/28/18 10:00 08/29/18 09:15 Altace - PO 5 mg DAILY SILVIA Administration Impression: Review of past lab data suggest that patient may have had a chronic neutropenia. Initial WBC of 6900 may have been elevated secondary to pancreatitis. Subsequently, fall in WBC and development of neutropenia may be secondary to pepcid. Unclear why initial elevated lipase- but as aforementioned may be secondary to meds initated over recent past. Will do screening tests and monitor lab. OBJECTIVE: ASSESSMENT AND PLAN:
--- NOTE | 2018-08-29 18:13 | PN ---
Physical Exam: SUBJECTIVE: Patient seen and examined this AM. She states she is doing well. tolerating her diet and has not had any further pain/nausea/vomiting. OBJECTIVE: Vital Signs Period Temp Pulse Resp BP Sys/Arcos Pulse Ox Last 24 Hr 97.4 F-98.1 F 49-59 18-22 130-152/74-93 100-100 GENERAL: A&O, no acute distress HEAD: Normocephalic, atraumatic. EYES: PERRL, no scleral icterus EARS, NOSE, THROAT: oropharynx clear without exudates. Moist mucous membranes. NECK: supple without lymphadenopathy LUNGS: CTA b/l, no crackles or wheezes HEART: Regular rate and rhythm, normal S1 and S2 without murmur ABDOMEN: Soft, minimally tender to palpation in epigastric region, normoactive bowel sounds PSYCHIATRIC: Cooperative. Good eye contact. Appropriate mood and affect. SKIN: Warm, dry, no rashes or lesions noted Laboratory Results - last 24 hr 08/28/18 08/28/18 08/29/18 17:07 23:08 05:53 WBC RBC Hgb Hct MCV MCH MCHC RDW Plt Count MPV Absolute Neuts (auto) Neutrophils % Lymphocytes % Monocytes % Eosinophils % Basophils % Nucleated RBC % Sodium Potassium Chloride Carbon Dioxide Anion Gap BUN Creatinine Creat Clearance w eGFR POC Glucometer 106 89 88 Random Glucose Calcium Total Bilirubin Direct Bilirubin AST ALT Alkaline Phosphatase Total Protein Albumin 08/29/18 08/29/18 08/29/18 08:25 08:25 12:00 WBC 1.8 L* 1.7 L* RBC 3.50 L 3.59 L Hgb 11.2 11.5 Hct 33.6 34.2 MCV 96.1 H 95.4 MCH 32.0 32.1 MCHC 33.3 33.6 RDW 14.4 14.1 Plt Count 130 L 132 L MPV 8.9 9.0 Absolute Neuts (auto) 0.8 L Neutrophils % 45.3 D Lymphocytes % 41.6 H D Monocytes % 11.3 H Eosinophils % 1.5 D Basophils % 0.3 Nucleated RBC % 0 Sodium 144 Potassium 4.2 Chloride 108 H Carbon Dioxide 31 Anion Gap 4 L BUN 11 Creatinine 0.6 Creat Clearance w eGFR > 60 POC Glucometer Random Glucose 89 Calcium 8.1 L Total Bilirubin 1.0 Direct Bilirubin 0.3 H AST 21 ALT 36 Alkaline Phosphatase 44 L Total Protein 5.6 L Albumin 3.0 L 08/29/18 08/29/18 12:38 17:18 WBC RBC Hgb Hct MCV MCH MCHC RDW Plt Count MPV Absolute Neuts (auto) Neutrophils % Lymphocytes % Monocytes % Eosinophils % Basophils % Nucleated RBC % Sodium Potassium Chloride Carbon Dioxide Anion Gap BUN Creatinine Creat Clearance w eGFR POC Glucometer 133 103 Random Glucose Calcium Total Bilirubin Direct Bilirubin AST ALT Alkaline Phosphatase Total Protein Albumin Active Medications Generic Name Dose Route Start Last Admin Trade Name Tyree PRN Reason Stop Dose Admin Atorvastatin Calcium 20 mg 08/27/18 22:00 08/28/18 21:35 Lipitor - PO 20 mg HS SILVIA Administration Docusate Sodium 100 mg 08/28/18 10:00 08/29/18 09:15 Colace - PO 100 mg DAILY SILVIA Administration Duloxetine HCl 60 mg 08/29/18 10:00 08/29/18 09:15 Cymbalta - PO 60 mg DAILY SILVIA Administration Enoxaparin Sodium 40 mg 08/27/18 17:15 08/29/18 09:15 Lovenox - SQ 40 mg DAILY SILVIA Administration Lactated Ringer's 1,000 ml in 1,000 mls @ 150 mls/hr 08/28/18 08:30 08/29/18 14:59 Lactated Ringers Solution IV 150 mls/hr ASDIR SILVIA Administration Insulin Aspart 1 vial 08/27/18 18:00 08/29/18 13:09 Novolog Vial Sliding Scale - SQ Not Given Q6HPO SILVIA Protocol Nadolol 40 mg 08/28/18 10:00 08/29/18 09:15 Corgard - PO 40 mg DAILY SILVIA Administration Ramipril 5 mg 08/28/18 10:00 08/29/18 09:15 Altace - PO 5 mg DAILY SILVIA Administration ASSESSMENT/PLAN: Pt is a 53 y/o F with PMH HTN, NIDDM, HLD, GERD admitted with Pancreatitis Leukopenia/Neutropenia -Initially WBC above 6 on admission -Down to 1.7 with ANC 800 -Neutropenic precautions -Heme/Onc consult appreciated -HIV, Hep panel, Parvovirus pending -Trend CBC with differential Acute Panreatitis -Lipase 4500 on admission yesterday, now 241 -Tolerating diet, advance to Diabetic Na controlled diet -Pt hungry, will trial full liquid and advance as tolerated -GI Consult appreciated -MRCP negative for cholelithiasis or cholecystitis, likely enteritis noted in the duodenum, 1.8 cm focal enhancement @ gastric fundus HTN -Nadolol 40 mg PO Daily -Ramipril 5 mg PO Daily NIDDM -BGMs ACHS -Insulin sliding scale for glycemic control HLD -Lipitor 20 mg PO HS GERD -DC pepsid as could play role in neutropenia DVT Prophylaxis -Lovenox 40 mg SQ Daily FEN -Fluids: none -Electrolytes: No electrolyte abnormalities, BMP in AM -Nutrition: Diabetic/Na Controlled diet Disposition Med/Surg Visit type - Emergency Visit Emergency Visit: Yes ED Registration Date: 08/27/18 Care time: The patient presented to the Emergency Department on the above date and was hospitalized for further evaluation of their emergent condition. - New Patient This patient is new to me today: No - Critical Care Critical Care patient: No
[2018-08-29] MEDS: ATORVASTATIN CA 20 MG TABLET (FP) PO SCH (21:35)
[2018-08-29] MEDS ORDERED: POLYETHYLENE GLYCOL 3350 119 GM BTL PO ONE (21:37)
[2018-08-30] MEDS: INSULIN SLIDING SCALE (NOVOLOG) 1 VIAL SQ SCH ×3 (00:45→11:07)
[2018-08-30] MEDS ORDERED: ACETAMINOPHEN 325 MG TABLET (FP) PO PRN (07:17)
[2018-08-30 07:24] LABS: BASO % 0.3 % (0-2.0); EOS % 2.5 % (0-4.5); HEMATOCRIT 33.3 % (32.4-45.2); HEMOGLOBIN 11.2 GM/dL (10.7-15.3); LYMPH % 43.9 % (8-40); MCH 32.2 pg (25.7-33.7); MCHC 33.8 g/dl (32.0-36.0); MEAN CELL VOLUME 95.5 fl (80-96); MEAN PLT VOLUME 9.7 fl (7.5-11.1); NEUT % 41.3 % (42.8-82.8); PLATELET COUNT 123 K/MM3 (134-434); RBC 3.49 M/mm3 (3.60-5.2); RDW 13.8 % (11.6-15.6); WHITE BLOOD COUNT 2.1 K/mm3 (4.0-10.0)
[2018-08-30 07:45] LABS: ALBUMIN 3.1 g/dl (3.4-5.0); ALK PHOS 45 U/L (45-117); ANION GAP 4 MMOL/L (8-16); BILIRUBIN,TOTAL 0.6 mg/dL (0.2-1); BLOOD UREA NITROGEN 11 mg/dL (7-18); CALCIUM 8.4 mg/dL (8.5-10.1); CHLORIDE 107 mmol/L (98-107); CO2 33 mmol/L (21-32); CREATININE 0.6 mg/dL (0.55-1.3); GLUCOSE,RANDOM 103 mg/dL (74-106); POTASSIUM 4.8 mmol/L (3.5-5.1); SGOT/AST 22 U/L (15-37); SGPT/ALT 37 U/L (13-61); SODIUM 143 mmol/L (136-145); TOT PROT 5.7 g/dl (6.4-8.2)
[2018-08-30] MEDS ORDERED: NADOLOL 20 MG TABLET (FP) ONE (09:13)
[2018-08-30] MEDS ORDERED: PT OWN MED DRAWER 7, Y5N ONE (09:14)
[2018-08-30] MEDS: ENOXAPARIN NA (PORCINE) 40 MG/0.4 ML DISP.SYRIN SQ SCH (09:16)
[2018-08-30] MEDS: DULoxetine HCL 30 MG CAPSULE.DR (FP) PO SCH (09:16)
[2018-08-30] MEDS: NADOLOL 40 MG TABLET (FP) PO SCH (09:16)
[2018-08-30] MEDS: RAMIPRIL 5 MG CAPSULE (FP) PO SCH (09:16)
[2018-08-30] MEDS: DOCUSATE SODIUM 100 MG CAPSULE (FP) PO SCH (09:16)
[2018-08-30 09:48] VITALS: PULSE 53
--- NOTE | 2018-08-30 12:48 | PN ---
Progress Note, Physician History of Present Illness: patient seen and examined at bedside. no complaint and no acute event overnight. - Current Medication List Current Medications: Active Medications Acetaminophen (Tylenol -) 650 mg PO Q6H PRN PRN Reason: PAIN OR FEVER Last Admin: 08/30/18 07:46 Dose: 650 mg Atorvastatin Calcium (Lipitor -) 20 mg PO HS [facility] Last Admin: 08/29/18 21:35 Dose: 20 mg Docusate Sodium (Colace -) 100 mg PO DAILY [facility] Last Admin: 08/30/18 09:16 Dose: 100 mg Duloxetine HCl (Cymbalta -) 60 mg PO DAILY [facility] Last Admin: 08/30/18 09:16 Dose: 60 mg Enoxaparin Sodium (Lovenox -) 40 mg SQ DAILY [facility] Last Admin: 08/30/18 09:16 Dose: 40 mg Insulin Aspart (Novolog Vial Sliding Scale -) 1 vial SQ Q6HPO [facility]; Protocol Last Admin: 08/30/18 11:07 Dose: Not Given Ramipril (Altace -) 5 mg PO DAILY [facility] Last Admin: 08/30/18 09:16 Dose: 5 mg - Objective Vital Signs: Vital Signs Temperature 98.3 F 08/30/18 09:45 Pulse Rate 53 L 08/30/18 09:45 Respiratory Rate 18 08/30/18 09:45 Blood Pressure 143/83 08/30/18 09:45 O2 Sat by Pulse Oximetry (%) 99 08/30/18 09:45 Constitutional: Yes: No Distress, Calm Eyes: Yes: Conjunctiva Clear, EOM Intact Cardiovascular: Yes: Regular Rate and Rhythm, S1, S2. No: Murmur Respiratory: Yes: CTA Bilaterally Gastrointestinal: Yes: Normal Bowel Sounds, Soft. No: Tenderness Edema: No Neurological: Yes: Alert, Oriented Labs: CBC, BMP 08/30/18 06:30 08/30/18 06:30 Impression/Plan Impression/Plan: 53 yo F admitted to the hospital for pancreatitis now being evaluated for acute neutropenia and thrombocytopenia. acute on chronic neutropenia and thrombocytopenia - suspect the patient has been chronically neutropenic and thrombocytopenic and came in with leukocytosis of 6.9. Then, possibly pepcid worsened the neutropenia. - in addition to infection workup, autoimmune related neutropenia is also a thought, will send fish, flow, cytogenetics, tsh, b12 and folate Jacek Quintana PGY3 Visit type - Emergency Visit Emergency Visit: No - New Patient This patient is new to me today: No - Critical Care Critical Care patient: Yes Total Critical Care Time (in minutes): 35 Critical Care Statement: The care of this patient involved high complexity decision making to prevent further life threatening deterioration of the patient 's condition and/or to evaluate & treat vital organ system(s) failure or risk of failure.
--- NOTE | 2018-08-30 13:44 | PN ---
Teaching Attending Note Name of Resident: Johnathon Mcelroy ATTENDING PHYSICIAN STATEMENT I saw and evaluated the patient. I reviewed the resident's note and discussed the case with the resident. I agree with the resident's findings and plan as documented. SUBJECTIVE: Patient reports having headache, dizziness, and tingling of her hands. She says she gets these symptoms when she has not eaten. OBJECTIVE: Vital Signs Period Temp Pulse Resp BP Sys/Arcos Pulse Ox Last 24 Hr 97.3 F-98.5 F 49-66 18-22 123-152/72-90 98-100 HEART: S1S2, RRR LUNGS: Clear ABDOMEN: Soft, non-tender, non-distended, normal BS EXTREMITIES: No edema Laboratory Results - last 24 hr 08/29/18 08/29/18 08/29/18 12:00 17:18 17:45 WBC RBC Hgb Hct MCV MCH MCHC RDW Plt Count MPV Absolute Neuts (auto) Neutrophils % Neutrophils % (Manual) 56.0 Band Neutrophils % 2.0 Lymphocytes % Lymphocytes % (Manual) 25.0 Monocytes % Monocytes % (Manual) 11 H Eosinophils % Eosinophils % (Manual) 2.0 Basophils % Basophils % (Manual) 0.0 Nucleated RBC % Sodium Potassium Chloride Carbon Dioxide Anion Gap BUN Creatinine Creat Clearance w eGFR POC Glucometer 103 Random Glucose Calcium Total Bilirubin AST ALT Alkaline Phosphatase Total Protein Albumin HIV 1&2 Antibody Screen Negative HIV P24 Antigen Negative 08/29/18 08/30/18 08/30/18 23:40 05:53 06:30 WBC 2.1 L RBC 3.49 L Hgb 11.2 Hct 33.3 MCV 95.5 MCH 32.2 MCHC 33.8 RDW 13.8 Plt Count 123 L MPV 9.7 Absolute Neuts (auto) 0.9 L Neutrophils % 41.3 L Neutrophils % (Manual) Band Neutrophils % Lymphocytes % 43.9 H Lymphocytes % (Manual) Monocytes % 12.0 H Monocytes % (Manual) Eosinophils % 2.5 Eosinophils % (Manual) Basophils % 0.3 Basophils % (Manual) Nucleated RBC % 0 Sodium Potassium Chloride Carbon Dioxide Anion Gap BUN Creatinine Creat Clearance w eGFR POC Glucometer 169 117 Random Glucose Calcium Total Bilirubin AST ALT Alkaline Phosphatase Total Protein Albumin HIV 1&2 Antibody Screen HIV P24 Antigen 08/30/18 08/30/18 06:30 11:02 WBC RBC Hgb Hct MCV MCH MCHC RDW Plt Count MPV Absolute Neuts (auto) Neutrophils % Neutrophils % (Manual) Band Neutrophils % Lymphocytes % Lymphocytes % (Manual) Monocytes % Monocytes % (Manual) Eosinophils % Eosinophils % (Manual) Basophils % Basophils % (Manual) Nucleated RBC % Sodium 143 Potassium 4.8 Chloride 107 Carbon Dioxide 33 H Anion Gap 4 L BUN 11 Creatinine 0.6 Creat Clearance w eGFR > 60 POC Glucometer 171 Random Glucose 103 Calcium 8.4 L Total Bilirubin 0.6 AST 22 ALT 37 Alkaline Phosphatase 45 Total Protein 5.7 L Albumin 3.1 L HIV 1&2 Antibody Screen HIV P24 Antigen Current Medications Generic Name Dose Route Start Last Admin Trade Name Freq PRN Reason Stop Dose Admin Acetaminophen 650 mg 08/30/18 07:17 08/30/18 07:46 Tylenol - PO 650 mg Q6H PRN Administration PAIN OR FEVER Atorvastatin Calcium 20 mg 08/27/18 22:00 08/29/18 21:35 Lipitor - PO 20 mg HS SILVIA Administration Docusate Sodium 100 mg 08/28/18 10:00 08/30/18 09:16 Colace - PO 100 mg DAILY SILVIA Administration Duloxetine HCl 60 mg 08/29/18 10:00 08/30/18 09:16 Cymbalta - PO 60 mg DAILY SILVIA Administration Enoxaparin Sodium 40 mg 08/27/18 17:15 08/30/18 09:16 Lovenox - SQ 40 mg DAILY SILVIA Administration Insulin Aspart 1 vial 08/27/18 18:00 08/30/18 11:07 Novolog Vial Sliding Scale - SQ Not Given Q6HPO [facility] Protocol Ramipril 5 mg 08/28/18 10:00 08/30/18 09:16 Altace - PO 5 mg DAILY SILVIA Administration ASSESSMENT AND PLAN: This is a 53 year old woman with a history of HTN, hyperlipidemia, type 2 DM, GERD who presented to the ED with epigastric pain, nausea, and vomiting. 1. Acute pancreatitis - Improved - Possibly secondary to Januvia - MRCP shows no evidence of gallstones, CBD stone, pancreatitis; mildly dilated CBD 7-8 mm with abnormality (artifact vs sludge) in distal CBD; possible enteritis; 1.8 cm focal nodular enhancement in gastric fundus just distal to GE junction - Outpatient EGD and EUS 2. Neutropenia and thrombocytopenia - Pepcid discontinued - WBC improving - Platelets stable - Outpatient hematology follow up 3. HTN - Continue Corgard Altace 4. Hyperlipidemia - Continue Lipitor 5. Type 2 DM - Januvia discontinued secondary to pancreatitis - Resume metformin at discharge - Continue Novolog sliding scale 6. Anxiety - Continue Cymbalta 7. Disposition - Ok for discharge home
[2018-08-30 14:05] VITALS: BP 136/80; TEMP 98.4
--- NOTE | 2018-08-30 15:48 | PN ---
GI Progress Note Subjective: Sitting up reading a book No distress No abdominal pain Being evaluated for neutropenia. Pepcid discontinued as part of evaluation plan Complains of constipation - Objective Vital Signs: Vital Signs Temperature 98.4 F 08/30/18 14:04 Pulse Rate 53 L 08/30/18 14:04 Respiratory Rate 20 08/30/18 14:04 Blood Pressure 136/80 08/30/18 14:04 O2 Sat by Pulse Oximetry (%) 99 08/30/18 09:45 Constitutional: Calm Eyes: No: Sclera Icterus Cardiovascular: Yes: Regular Rate and Rhythm Respiratory: Yes: CTA Bilaterally Gastrointestinal Inspection: No: Distention ...Auscultate: Yes: Normoactive Bowel Sounds ...Palpate: Yes: Soft. No: Hepatomegaly, Tenderness ...Percussion: No: Tympanitic Edema: No (No LE edema) Neurological: Yes: Alert Labs: CBC, BMP 08/30/18 06:30 08/30/18 06:30 Problem List - Problems (1) Vomiting Assessment/Plan: Resolved Continued outpatient evaluation of MRI findings Code(s): R11.10 - VOMITING, UNSPECIFIED (2) Neutropenia Assessment/Plan: With thrombocytopenia. Beiung evaluted by heme pepcid stopped Code(s): D70.9 - NEUTROPENIA, UNSPECIFIED (3) Constipation Assessment/Plan: Added miralax 17g PO BID Code(s): K59.00 - CONSTIPATION, UNSPECIFIED
--- NOTE | 2018-08-30 15:57 | DS ---
Physical Exam: SUBJECTIVE: Patient seen and examined this AM. She states that she is feeling much better and is ready to go home is her labs look okay. OBJECTIVE: Vital Signs Period Temp Pulse Resp BP Sys/Arcos Pulse Ox Last 24 Hr 97.3 F-98.5 F 50-66 18-20 123-143/72-88 98-100 PHYSICAL EXAM GENERAL: A&O, no acute distress HEAD: Normocephalic, atraumatic. EYES: PERRL, no scleral icterus EARS, NOSE, THROAT: oropharynx clear without exudates. Moist mucous membranes. NECK: supple without lymphadenopathy LUNGS: CTA b/l, no crackles or wheezes HEART: Regular rate and rhythm, normal S1 and S2 without murmur ABDOMEN: Soft, nontender to palpation, normoactive bowel sounds PSYCHIATRIC: Cooperative. Good eye contact. Appropriate mood and affect. SKIN: Warm, dry, no rashes or lesions noted LABS Laboratory Results - last 24 hr 08/29/18 08/29/18 08/29/18 12:00 17:18 17:45 WBC RBC Hgb Hct MCV MCH MCHC RDW Plt Count MPV Absolute Neuts (auto) Neutrophils % Neutrophils % (Manual) 56.0 Band Neutrophils % 2.0 Lymphocytes % Lymphocytes % (Manual) 25.0 Monocytes % Monocytes % (Manual) 11 H Eosinophils % Eosinophils % (Manual) 2.0 Basophils % Basophils % (Manual) 0.0 Nucleated RBC % Sodium Potassium Chloride Carbon Dioxide Anion Gap BUN Creatinine Creat Clearance w eGFR POC Glucometer 103 Random Glucose Calcium Total Bilirubin AST ALT Alkaline Phosphatase Total Protein Albumin HIV 1&2 Antibody Screen Negative HIV P24 Antigen Negative 08/29/18 08/30/18 08/30/18 23:40 05:53 06:30 WBC 2.1 L RBC 3.49 L Hgb 11.2 Hct 33.3 MCV 95.5 MCH 32.2 MCHC 33.8 RDW 13.8 Plt Count 123 L MPV 9.7 Absolute Neuts (auto) 0.9 L Neutrophils % 41.3 L Neutrophils % (Manual) Band Neutrophils % Lymphocytes % 43.9 H Lymphocytes % (Manual) Monocytes % 12.0 H Monocytes % (Manual) Eosinophils % 2.5 Eosinophils % (Manual) Basophils % 0.3 Basophils % (Manual) Nucleated RBC % 0 Sodium Potassium Chloride Carbon Dioxide Anion Gap BUN Creatinine Creat Clearance w eGFR POC Glucometer 169 117 Random Glucose Calcium Total Bilirubin AST ALT Alkaline Phosphatase Total Protein Albumin HIV 1&2 Antibody Screen HIV P24 Antigen 08/30/18 08/30/18 06:30 11:02 WBC RBC Hgb Hct MCV MCH MCHC RDW Plt Count MPV Absolute Neuts (auto) Neutrophils % Neutrophils % (Manual) Band Neutrophils % Lymphocytes % Lymphocytes % (Manual) Monocytes % Monocytes % (Manual) Eosinophils % Eosinophils % (Manual) Basophils % Basophils % (Manual) Nucleated RBC % Sodium 143 Potassium 4.8 Chloride 107 Carbon Dioxide 33 H Anion Gap 4 L BUN 11 Creatinine 0.6 Creat Clearance w eGFR > 60 POC Glucometer 171 Random Glucose 103 Calcium 8.4 L Total Bilirubin 0.6 AST 22 ALT 37 Alkaline Phosphatase 45 Total Protein 5.7 L Albumin 3.1 L HIV 1&2 Antibody Screen HIV P24 Antigen HOSPITAL COURSE: Date of Admission:08/28/18 Date of Discharge: 08/30/18 HPI on Admission: Pt is a 53 y/o F with PMH HTN, NIDDM, HLD, GERD who presented to ED with 1 day of nausea and 6 episodes of nonbloody nonbilious vomiting. Denies fever, chills , diarrhea, cough, sick contacts, travel. No history gall stones. No history EtOH. Hospital Course: Pt was given fluids and made NPO until hungry and tolerated diet. Seen by GI who recommended MRCP which did not reveal any significant findings. Pt was noted to be leukopenic and neutropenic during admission. Was placed on neutropenic precautions and hematology was consulted. Initial viral workup negative. Pt has seen rheumatology in the past and leukopenia was deemed to be likely chronic secondary to possible autoimmune cause. Pt was also on pepcid which was discontinued. WBC and ANC were noted to be slightly improved and she was deemed safe for discharge with close follow up CBC via her primary care physician or [place] lab, and follow up with hematology and GI as well. Minutes to complete discharge: 35 Discharge Summary Reason For Visit: PANCREATITIS Current Active Problems Constipation (Acute) Neutropenia (Acute) Pancreatitis (Acute) Vomiting (Acute) Condition: Stable - Instructions Diet, Activity, Other Instructions: You were admitted with acute pancreatitis. You were given fluids and your pain was controlled. You were seen by GI who recommended imaging studies which were normal. Your pancreatitis resolved, however, your white blood cell count was found to be very low. You were seen by a information systems technician who ordered some tests which so far are all normal. It is likely that this is chronic and not a new issue. At this point you are medically safe for discharge. You should follow up with your primary doctor within 1 week. You are being given a script for blood work to be drawn on sunday 09/03. You should have a CBC with differential drawn. This can either be drawn at [place], or you can have this drawn at your doctors office if you can get an appointment for monday. You should follow up with a GI Doctor within 2 weeks of discharge You should follow up with a information systems technician/oncologist within 2 weeks of discharge You should continue all of your home medications as they are prescribed. You should avoid taking pepcid as this can lower your white blood cell count further If you have any concerning symptoms you should be seen by your doctor or return to the emergency department Referrals: Konstantin James MD [Primary Care Provider] - Emigdio Nieto MD [Staff Physician] - Disposition: HOME - Home Medications Comprehensive Discharge Medication List: Ambulatory Orders Atorvastatin Calcium 20 mg PO HS 08/27/18 Omeprazole 40 mg PO DAILY 08/27/18 Duloxetine HCl [Cymbalta] 60 mg PO BID 08/28/18 Hydrochlorothiazide [Hctz -] 12.5 mg PO DAILY 08/28/18 Ramipril [Altace] 5 mg PO DAILY 08/28/18 Sitagliptin Phos/Metformin HCl [Janumet 50-1,000 mg Tablet] 50 - 1,000 mg PO DAILY 08/28/18 This patient is new to me today: No Emergency Visit: Yes ED Registration Date: 08/28/18 Care time: The patient presented to the Emergency Department on the above date and was hospitalized for further evaluation of their emergent condition. Critical Care patient: No - Discharge Referral Referred to [facility] No
[2018-08-30] MEDS ORDERED: POLYETHYLENE GLYCOL 3350 119 GM BTL PO SCH (22:00)
[2018-08-31 12:20] LABS: HBSAG SCREEN Negative (Negative); HEP A AB, IGM Negative (Negative); HEP B CORE AB, TOT Positive (Negative)
[2018-08-31 17:13] LABS: PARV B19 IGG 4.1 index (0.0-0.8); PARV B19 IGM 0.2 index (0.0-0.8)
--- NOTE | 2018-09-03 16:31 | PATH ---
Surgical Pathology Report Patient Name: CHRIS CUETO [facility]. Rec. #: [id number] /Age/Gender: 1965 (Age: 53) / F Account: [id number] Location: [facility] MED/SURG Taken: 08/30/2018 Received: 08/30/2018 Reported: 09/03/2018 Physicians: Jacques Morocho M.D. 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 No evidence of deletion 7q or monosomy 7 is present. No evidence of trisomy 8 (+8) is present. No evidence of deletion 13q14.2 is present. No evidence of rearrangement of 11q23. No evidence of a deletion of the p53 (17p13) locus. No evidence of deletion 20q12 is present See [facility] reports ([id number] and [id number]) for additional details. Electronically Signed Zoë Jenkins M.D. Addendum Reported: 09/05/2018 Addendum Diagnosis CYTOGENETIC KARYOTYPE ANALYSIS performed and interpreted at [facility] ([id number]) shows the following: RESULTS: Tissue Culture Failure INTERPRETATION: This unstimulated peripheral blood specimen did not produce any analyzable metaphase cells and, therefore, chromosome analysis is not possible. A bone marrow aspirate, when clinically appropriate, is recommended. See [facility] report ([id number]) for additional details. Zoë Jenkins M.D. Gross Description Received are 4 green top tubes of peripheral blood which are sent to [facility]. 08/30/2018 saudi08/30/2018
== END 2018-08-30 17:37 | disposition home or self-care (01) | DRG 439 ==
LOC: JER 12:23 → JERBED 14:36 → INTOOBSV 14:36 → J5S 20:42 → OBSVTOIN 08-28 07:30 → J7W 08-29 23:35
PROVIDERS: ATTEND Internal Medicine
DX: K85.10 Biliary acute pancreatitis without necrosis or infection (principal); K82.0 Obstruction of gallbladder; E11.9 Type 2 diabetes mellitus without complications; I10 Essential (primary) hypertension; K21.9 Gastro-esophageal reflux disease without esophagitis; Z79.84 Long term (current) use of oral hypoglycemic drugs; E78.5 Hyperlipidemia, unspecified; K59.00 Constipation, unspecified; F41.9 Anxiety disorder, unspecified; R94.31 Abnormal electrocardiogram [ECG] [EKG]; D70.9 Neutropenia, unspecified; D69.6 Thrombocytopenia, unspecified
CPT/HCPCS: 36415; 70450-TC; 74183-TC; 76705-TC; 80048; 80053; 80076; 82962; 83690; 84478; 84484; 85025; 85027; 86704; 86706; 86708; 86747; 87340; 87389; 87522; 88300-TC; 93005; 93010; 99283-25; G0378; J0131

== ENCOUNTER 2019-04-05 12:52 | Emergency (ER) | payer OTHER ==
[2019-04-05 13:07] VITALS: BP 139/94; PULSE 52; TEMP 97.8; BMI 30.9
--- NOTE | 2019-04-05 14:26 | PDOC ---
Attending Attestation - Resident Resident Name: Jack Newell - ED Attending Attestation I have performed the following: I have examined & evaluated the patient, The case was reviewed & discussed with the resident, I agree w/resident's findings & plan, Exceptions are as noted
--- NOTE | 2019-04-05 14:31 | PDOC ---
History of Present Illness - General Chief Complaint: Laceration Stated Complaint: RIGHT HAND LACERATION Time Seen by Provider: 04/05/19 14:07 History Source: Patient Exam Limitations: No Limitations - History of Present Illness Initial Comments: 04/05/19 14:27 53y F hx of dm, presents with complaint of R hand laceration while cutting something. She was holding a clean knif with her L hand and it slipped, she moved her R hadn out of the way and it hit the knive, cutting her webbig betwen the R4th and 5th digit. pt tammi any numbness/tingling/weakness. no active bleeding. tetanaus was >8-9 years ago ROS: Skin: +R hand laceration, without active bleeding neuro: denies numbness/tingling/weakness Physical exam: 1.5cm laceration webbing of R 5th and 4th digit more on palmar surface no signs of tendon/vasclar injury on exploration neuro intact including flex/ex at dip/pip of 4th and 55th digits sensation intact throughout wound is clean will update pts tetanus will close laceration after irrigation Past History - Past Medical History Allergies/Adverse Reactions: Allergies Allergy/AdvReac Type Severity Reaction Status Date / Time No Known Allergies Allergy Verified 04/05/19 12:53 Home Medications: Ambulatory Orders Atorvastatin Calcium 20 mg PO HS 08/27/18 Omeprazole 40 mg PO DAILY 08/27/18 Duloxetine HCl [Cymbalta] 60 mg PO DAILY 08/28/18 Hydrochlorothiazide [Hctz -] 12.5 mg PO DAILY 08/28/18 Ramipril [Altace] 5 mg PO DAILY 08/28/18 metFORMIN HCL [Metformin HCl] 500 mg PO BID #28 tablet 08/30/18 Cephalexin [Keflex] 500 mg PO TID #9 capsule 04/05/19 Glimepiride 2 mg PO BID 04/05/19 Nadolol 40 mg PO DAILY 04/05/19 COPD: No Diabetes: Yes (nidddm) HTN: Yes Hypercholesterolemia: Yes Psychiatric Problems: Yes (anxiety) - Surgical History 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) - Suicide/Smoking/Psychosocial Hx Smoking History: Never smoked Have you smoked in the past 12 months: No Information on smoking cessation initiated: No Hx Alcohol Use: No Drug/Substance Use Hx: No Substance Use Type: None *Physical Exam - Vital Signs Last Vital Signs Temp Pulse Resp BP Pulse Ox 97.8 F 52 L 18 139/94 100 04/05/19 12:52 04/05/19 12:52 04/05/19 12:52 04/05/19 12:52 04/05/19 12:52 Procedures - Consent Consent obtained: Verbal - Laceration/Wound Repair Right 4th digit Wound Length: to 2.5 cm Wound Explored: clean Wound's Depth, Shape: superficial Irrigated w/ Saline: Yes Anesthesia: 1% Lidocaine Amount of Anesthetic (ccs): 3 Wound Debrided: minimal Wound Repaired With: Sutures Suture Size/Type: 4:0 Number of Sutures: 4 Layer Closure: No Sterile Dressing Applied: Yes *DC/Admit/Observation/Transfer Diagnosis at time of Disposition: Laceration of hand Qualifiers: Encounter type: initial encounter Foreign body presence: without foreign body Laterality: right Qualified Code(s): S61.411A - Laceration without foreign body of right hand, initial encounter - Discharge Dispostion Disposition: HOME Condition at time of disposition: Stable Decision to Admit order: No - Prescriptions Prescriptions: Cephalexin [Keflex] 500 mg PO TID #9 capsule - Referrals Referrals: Konstantin James MD [Primary Care Provider] - - Patient Instructions Printed Discharge Instructions: DI for Laceration Repair Additional Instructions: Return to the emergency department immediately with ANY new, persistent or worsening symptoms including any redness, bleeding, purulent discharge, swelling or other concerns. Keep the area clean and dry for 48 hours. Afterwards you may clean gently with soap and water. Apply bacitracin twice a day. Keep the area away from the sun for the next 9 months, please use sunscreen and wear a hat if you need to be in the sun to improve appearance of the scar. Return in 7-10 days for suture removal. You MUST call and follow up with your doctor for further evaluation of your symptoms. Results were discussed with you. Please make sure your doctor reviews the results of your emergency evaluation. Print Language: LEBANESE - Post Discharge Activity Forms/Work/School Notes: Back to Work
[2019-04-05] MEDS ORDERED: DIPHTH,PERTUSS(ACELL),TET 0.5 ML DISP.SYRIN IM ONE (14:54)
== END 2019-04-05 15:35 | disposition home or self-care (01) ==
LOC: FER 12:52
PROC: 0HQFXZZ Repair Right Hand Skin, External Approach (ICD-10-PCS; principal; 2019-04-05)
PROC: 3E0234Z Introduction of Serum, Toxoid and Vaccine into Muscle, Percutaneous Approach (ICD-10-PCS; 2019-04-05)
DX: S61.411A Laceration without foreign body of right hand, initial encounter (principal); W45.8XXA Other foreign body or object entering through skin, initial encounter; Y93.89 Activity, other specified; Y92.89 Other specified places as the place of occurrence of the external cause
CPT/HCPCS: 90715; 99283-25

== ENCOUNTER 2019-04-14 15:22 | Emergency (ER) | payer OTHER ==
[2019-04-14 15:30] VITALS: BP 125/76; PULSE 59; TEMP 97.6; BMI 29.2
--- NOTE | 2019-04-14 15:36 | PDOC ---
Documentation entered by Keyana Witt SCRIBE, acting as scribe for Mary Kay Hilliard MD. Mary Kay Hilliard MD: This documentation has been prepared by the scribeEduar Natalie, SCRIBE, under my direction and personally reviewed by me in its entirety. I confirm that the documentation accurately reflects all work, treatment, procedures, and medical decision making performed by me. Suture Removal/Wound Check HPI - History of Present Illness Chief Complaint: Suture/Staple Removal(Here) Stated Complaint: SUTURE REMOVAL History Source: Yes: Patient Exam Limitations: Yes: No Limitations Past History - Past Medical History Allergies/Adverse Reactions: Allergies Allergy/AdvReac Type Severity Reaction Status Date / Time No Known Allergies Allergy Verified 04/14/19 15:23 Home Medications: Ambulatory Orders Atorvastatin Calcium 20 mg PO HS 08/27/18 Omeprazole 40 mg PO DAILY 08/27/18 Duloxetine HCl [Cymbalta] 60 mg PO DAILY 08/28/18 Hydrochlorothiazide [Hctz -] 12.5 mg PO DAILY 08/28/18 Ramipril [Altace] 5 mg PO DAILY 08/28/18 metFORMIN HCL [Metformin HCl] 500 mg PO BID #28 tablet 08/30/18 Cephalexin [Keflex] 500 mg PO TID #9 capsule 04/05/19 Glimepiride 2 mg PO BID 04/05/19 Nadolol 40 mg PO DAILY 04/05/19 COPD: No Diabetes: Yes (nidddm) HTN: Yes Hypercholesterolemia: Yes - Suicide/Smoking/Psychosocial Hx Smoking History: Never smoked Have you smoked in the past 12 months: No Hx Alcohol Use: No Drug/Substance Use Hx: No Substance Use Type: None *Physical Exam - Vital Signs Last Vital Signs Temp Pulse Resp BP Pulse Ox 97.6 F 59 L 20 125/76 99 04/14/19 15:23 04/14/19 15:23 04/14/19 15:23 04/14/19 15:23 04/14/19 15:23 Medical Decision Making - Medical Decision Making 04/14/19 15:46 Pt presents to the ED for suture remobal. Wound is well healed. Sutures removed. Will discharge home. *DC/Admit/Observation/Transfer Diagnosis at time of Disposition: Visit for suture removal - Discharge Dispostion Disposition: HOME Condition at time of disposition: Good Decision to Admit order: No - Referrals - Patient Instructions Printed Discharge Instructions: DI for Suture Removal Additional Instructions: return to the ED for fever, severe pain, red hot tender swollen wound. - Post Discharge Activity
== END 2019-04-14 15:40 | disposition home or self-care (01) ==
LOC: FER 15:22
DX: Z48.02 Encounter for removal of sutures (principal)
CPT/HCPCS: 99281-25

== ENCOUNTER 2022-12-22 10:30 | Observation (INO) | payer OTHER ==
[2022-12-22] MEDS ORDERED: ACETAMINOPHEN 1000 MG/100 ML BAG IVPB ONE (12:10)
[2022-12-22] MEDS ORDERED: ACETAMINOPHEN INJECTION 100 ML IVPB ONE (12:19)
[2022-12-22 12:32] LABS: BASO % 0.5 % (0-2.0); EOS % 0.6 % (0-4.5); HEMATOCRIT 36.3 % (32.4-45.2); HEMOGLOBIN 12.3 GM/dL (10.7-15.3); LYMPH % 26.2 % (8-40); MCH 30.1 pg (25.7-33.7); MCHC 33.8 g/dl (32.0-36.0); MEAN CELL VOLUME 89.2 fl (80-96); MEAN PLT VOLUME 8.7 fl (7.5-11.1); MONO % 6.6 % (3.8-10.2); NEUT % 66.1 % (42.8-82.8); PLATELET COUNT 181 10^3/uL (134-434); RBC 4.07 M/mm3 (3.60-5.2); RDW 15.6 % (11.6-15.6)
[2022-12-22 12:38] LABS: INR 1.1 (0.83-1.09); PROTHROMBIN TIME (PATIENT) 12.7 SEC (9.7-13.0)
[2022-12-22 12:56] LABS: POTASSIUM 4.3 mmol/L (3.5-5.1)
[2022-12-22 12:58] LABS: CALCIUM 8.6 mg/dL (8.5-10.1)
[2022-12-22 12:59] LABS: ALBUMIN 3.3 g/dl (3.4-5.0); BLOOD UREA NITROGEN 16.3 mg/dL (7-18); MAGNESIUM 1.9 mg/dL (1.8-2.4)
[2022-12-22 13:02] LABS: CREATININE 0.7 mg/dL (0.55-1.3)
[2022-12-22 13:03] LABS: BILIRUBIN,TOTAL 0.5 mg/dL (0.2-1)
[2022-12-22 13:04] LABS: TOT PROT 6.5 g/dl (6.4-8.2)
[2022-12-22 13:07] LABS: N-TERMINAL BNP 2229.5 pg/ml (5-125)
[2022-12-22 14:48] VITALS: BMI 29.2
[2022-12-22] MEDS ORDERED: morphine CARPU-JECT 2 MG/1 ML DISP.SYRIN IVPUSH ONE (14:52)
[2022-12-22] MEDS ORDERED: KETOROLAC TROMETHAMINE 15 MG/ML VIAL IVPUSH PRN (14:53)
[2022-12-22] MEDS: INSULIN SLIDING SCALE (NOVOLOG) 1 VIAL SQ SCH ×2 (16:49→21:07)
[2022-12-22] MEDS ORDERED: ATORVASTATIN CA 20 MG TABLET (FP) PO SCH (22:00)
[2022-12-23] MEDS: INSULIN SLIDING SCALE (NOVOLOG) 1 VIAL SQ SCH ×2 (06:06→12:27)
[2022-12-23 08:49] LABS: BASO % 0.6 % (0-2.0); EOS % 1.4 % (0-4.5); HEMATOCRIT 36.6 % (32.4-45.2); HEMOGLOBIN 12.4 GM/dL (10.7-15.3); LYMPH % 33.1 % (8-40); MCH 30.2 pg (25.7-33.7); MCHC 33.9 g/dl (32.0-36.0); MONO % 7.4 % (3.8-10.2); NEUT % 57.5 % (42.8-82.8); PLATELET COUNT 177 10^3/uL (134-434); RBC 4.12 M/mm3 (3.60-5.2); RDW 15.8 % (11.6-15.6); WHITE BLOOD COUNT 3.1 K/mm3 (4.0-10.0)
[2022-12-23 09:07] LABS: POTASSIUM 4.4 mmol/L (3.5-5.1)
[2022-12-23 09:09] LABS: ALBUMIN 3.1 g/dl (3.4-5.0); CALCIUM 8.9 mg/dL (8.5-10.1); MAGNESIUM 1.9 mg/dL (1.8-2.4)
[2022-12-23 09:12] LABS: CHOLESTEROL 176 mg/dL (50-200); CREATININE 0.7 mg/dL (0.55-1.3)
[2022-12-23 09:13] LABS: LDL CHOLESTEROL (ONLY SJRH) 115 mg/dL (5-100); PHOSPHOROUS 4.3 mg/dL (2.5-4.9)
[2022-12-23 09:14] LABS: TOT PROT 6.3 g/dl (6.4-8.2)
[2022-12-23 09:15] LABS: HDL CHOLESTEROL 55 mg/dL (40-60)
[2022-12-23] MEDS ORDERED: REGADENOSON 0.4 MG/5 ML PRE-FILLED SYRINGE IVPUSH ONE ×2 (09:50→10:00)
[2022-12-23] MEDS ORDERED: RAMIPRIL 5 MG CAPSULE PO SCH (10:00)
[2022-12-23 13:50] VITALS: BP 136/91; PULSE 68; RESP 17; TEMP 98.8
== END 2022-12-23 17:13 | disposition home or self-care (01) ==
LOC: JER 10:30 → JERBED 13:29 → J4S 14:22
PROVIDERS: ADMIT Internal Medicine; ATTEND Internal Medicine
PROC: 3E033NZ Introduction of Analgesics, Hypnotics, Sedatives into Peripheral Vein, Percutaneous Approach (ICD-10-PCS; principal; 2022-12-22)
PROC: 3E033GC Introduction of Other Therapeutic Substance into Peripheral Vein, Percutaneous Approach (ICD-10-PCS; 2022-12-22)
DX: I11.9 Hypertensive heart disease without heart failure (principal); I43 Cardiomyopathy in diseases classified elsewhere; E11.9 Type 2 diabetes mellitus without complications; E78.5 Hyperlipidemia, unspecified; Z85.028 Personal history of other malignant neoplasm of stomach
CPT/HCPCS: 0241U-QW; 36415; 71045-TC-FY; 78452-TC; 80053; 80061; 82962; 83036; 83735; 83880; 84100; 84484; 85025; 85610; 85730; 93005; 93010; 93017; 93306-TC; 99285-25; A9502; G0378; J2785

== ENCOUNTER 2023-07-23 23:39 | Emergency (ER) | payer OTHER ==
[2023-07-23 23:43] VITALS: BP 116/76; PULSE 79; RESP 17; TEMP 98.8; BMI 30.5
[2023-07-23] MEDS ORDERED: diazePAM 5 MG TABLET PO ONE (23:57)
[2023-07-24] MEDS ORDERED: diazePAM 5 MG TABLET ONE (00:15)
== END 2023-07-24 01:34 | disposition home or self-care (01) ==
LOC: FER 23:39
DX: M25.551 Pain in right hip (principal)
CPT/HCPCS: 72170-TC-FY; 73502-TC-RT-FY; 99283-25